=== PATIENT | male | born 1940 | race Caucasian/White ===

== ENCOUNTER 2016-05-18 22:31 | Observation (INO) ==
--- NOTE | 2016-05-18 22:51 | Emergency Department Note ---
Disposition Clinical Impression: Unstable angina pectoris Disposition: Admitted As Inpatient Time of Disposition: 05:06 Chest Pain HPI - General Chief Complaint: ED Chest Pain Stated Complaint: CP & SHEMAR Time Seen by Provider: 05/18/16 22:47 Source: patient Limitations: no limitations - History of Present Illness HPI Narrative: Patient began having chest pain to the left side of his chest that radiated down into his left arm earlier today. He states he also had a tight feeling around his head. He states this is how his previous MIs have helped. He reports shortness of breath with the pain as well. He describes the pain as an 8 out of 10. He describes the pain. There are no provoking or alleviating factors. It is constant. He states the pain radiates down his left arm. Severity scale (1-10): 8 - Related Data Home Medications Medication Instructions Recorded Confirmed Aspirin [Lo-Dose Aspirin EC] 81 mg PO DAILY 05/19/16 05/19/16 Atenolol [Tenormin] 25 mg PO DAILY 05/19/16 05/19/16 Atorvastatin [Lipitor] 80 mg PO HS 05/19/16 05/19/16 Ergocalciferol (VITAMIN D2) 50,000 unit PO QWEEK 05/19/16 05/19/16 [Vitamin D2] GlipiZIDE [Glipizide] 10 mg PO DAILY 05/19/16 05/19/16 Isosorbide MONOnitrate [Isosorbide 30 mg PO DAILY 05/19/16 05/19/16 Mononitrate] Januvia 100 mg PO DAILY 05/19/16 05/19/16 Latanoprost [Xalatan] 1 drop OP 05/19/16 05/19/16 Losartan [Cozaar] 50 mg PO DAILY 05/19/16 05/19/16 Multivit-Min/FA/Lycopen/Lutein 1 tab PO DAILY 05/19/16 05/19/16 [Centrum Silver Tablet] PHENobarbital [Phenobarbital] 16 mg PO TID 05/19/16 05/19/16 Phenytoin ER [Dilantin ER] 100 mg PO TID 05/19/16 05/19/16 Ropinirole [Requip] 1 mg PO HS 05/19/16 05/19/16 Allergies Allergy/AdvReac Type Severity Reaction Status Date / Time aspirin [ASA] AdvReac Gastrointestinal Verified 05/18/16 22:36 Upset Review of Systems: Patient denies any headaches or syncope. He denies any blurred vision. He does report chest pain that began earlier today it is an ache in the left side of his chest. He also reports shortness of breath with this. He reports a tight feeling around his head. He denies any nausea. He denies any vomiting or diarrhea. He denies any abdominal pain. He denies any swelling or edema to his extremities. All systems ED: reviewed and negative except as stated. Chest Pain PMH - Past Medical History Medical history: Reports: diabetes, hyperlipidemia, hypertension, myocardial infarction, seizures Psychiatric history: Reports: no psych history - Social History Smoking Status: Never smoker Alcohol use: Reports: none Drug use: Reports: none Physical Exam - General Limitations: no limitations General appearance: alert, in no apparent distress - Head Head exam: atraumatic, normocephalic, normal inspection - Eye Eye exam: Present: normal appearance, PERRL, EOMI. Absent: scleral icterus - ENT ENT exam: normal exam, normal oropharynx, mucous membranes moist - Neck Neck exam: Present: normal inspection, full ROM, trachea midline. Absent: tenderness, meningismus, lymphadenopathy - Chest Chest inspection: Present: normal inspection, symmetric chest wall rise. Absent : tenderness, rash - Respiratory Respiratory exam: Present: normal lung sounds bilaterally. Absent: respiratory distress - Cardiovascular Cardiovascular exam: Present: regular rate, normal rhythm, normal heart sounds - Abdominal Exam Abdominal exam: Present: soft, Non-Tender, normal bowel sounds. Absent: tenderness, distention, guarding, rebound, rigidity, organomegaly - Extremities Exam Extremities exam: Present: normal inspection, full ROM. Absent: tenderness, pedal edema - Back Exam Back exam: Present: normal inspection, full ROM. Absent: tenderness - Neurological Exam Neurological exam: Present: alert, oriented X3 - Psychiatric Psychiatric exam: Present: normal affect, normal mood - Skin Skin exam: Present: warm, dry, intact, normal color Course Course Narrative: Male patient with a significant cardiac history with HI and CABG presenting with chest pain that began today while he was sitting and watching television. He describes no alleviating or provoking factors. States the pain is an ache in the left side of his chest that radiates down into his arm. He also describes a band around his head. He states his house previous chest pain felt. His last cardiac catheter was 3 years ago. He states his pain is an 8 out of 10. He denies any shortness of breath at this time. He denies any dyspnea on exertion. We will give patient aspirin as he only takes a baby aspirin at home. Also try nitroglycerin. There is no acute ischemia noted on his EKG at this time. We will do a Cardiac workup. - Reevaluation(s) Reevaluation #1: Patient's workup was unremarkable. However patient has a heart score of 6 with a significant medical history. We will admit patient for a cardiac rule out. He is requesting to be admitted as well as this time. - Consultations Consultation #1: Dr morris accepted Pt in stable condition. Vital Signs Temperature 97.8 F 05/18/16 22:31 Pulse Rate 78 05/18/16 22:31 Respiratory Rate 20 05/18/16 22:31 Blood Pressure 167/72 05/18/16 22:31 O2 Sat by Pulse Oximetry 91 L 05/18/16 22:31 Temperature 98.1 F 05/19/16 03:58 Pulse Rate 73 05/19/16 03:58 Respiratory Rate 18 05/19/16 05:00 Blood Pressure 126/81 05/19/16 03:58 O2 Sat by Pulse Oximetry 98 05/19/16 05:00 Oxygen Delivery Oxygen Delivery Room Air Chest Pain - Medical Records Medical records reviewed: Yes I reviewed the patient's medical records. - Lab Data Lab results reviewed: Yes I reviewed the patient's lab results. Result diagrams: 05/18/16 22:45 05/18/16 22:45 Lab Results 05/18/16 05/18/16 05/18/16 Range/Units 22:45 22:45 22:45 WBC 9.8 (4.3-11.1) K/mcL RBC 3.88 L (4.19-5.50) M/mcL Hgb 12.6 L (12.9-16.9) g/dL Hct 37.9 (37.5-50.1) % MCV 97.7 (83.0-100.0) fL MCH 32.5 (28.0-33.3) pg MCHC 33.2 (31.6-35.5) g/dL RDW 13.2 (11.5-14.5) % Plt Count 180 (140-400) K/mcL MPV 9.1 L (9.4-12.4) fL Immature Gran % 0.5 (0-4) % Seg Neutrophils % 47.2 % Lymphocytes % 33.3 % Monocytes % 11.8 % Eosinophils % 6.3 % Basophils % 0.9 % Neutrophils # 4.6 (1.6-8.9) K/mcL Lymphocytes # 3.3 (0.6-4.6) K/mcL Monocytes # 1.2 (0.0-1.3) K/mcL Eosinophils # 0.6 (0.0-0.6) K/mcL Basophils # 0.1 (0.0-0.2) K/mcL PT 11.1 (9.4-12.1) Seconds INR 1.0 APTT 31.7 (26.0-36.0) Seconds Sodium 140 (136-145) mEq/L Potassium 4.1 (3.5-4.5) mEq/L Chloride 107 (98-109) mEq/L Carbon Dioxide 23 (19-29) mEq/L BUN 20 (8-26) mg/dL Creatinine 1.01 (0.72-1.25) mg/dL Est GFR ( Amer) > 60 (> 60) Est GFR (Non-Af Amer) > 60 (> 60) BUN/Creatinine Ratio 20 (6-26) Glucose 167 H (70-99) mg/dL Calculated Osmolality 296 (280-300) Calcium 8.8 (8.6-10.8) mg/dL Troponin I (0-0.03) ng/mL 05/18/16 Range/Units 22:45 WBC (4.3-11.1) K/mcL RBC (4.19-5.50) M/mcL Hgb (12.9-16.9) g/dL Hct (37.5-50.1) % MCV (83.0-100.0) fL MCH (28.0-33.3) pg MCHC (31.6-35.5) g/dL RDW (11.5-14.5) % Plt Count (140-400) K/mcL MPV (9.4-12.4) fL Immature Gran % (0-4) % Seg Neutrophils % % Lymphocytes % % Monocytes % % Eosinophils % % Basophils % % Neutrophils # (1.6-8.9) K/mcL Lymphocytes # (0.6-4.6) K/mcL Monocytes # (0.0-1.3) K/mcL Eosinophils # (0.0-0.6) K/mcL Basophils # (0.0-0.2) K/mcL PT (9.4-12.1) Seconds INR APTT (26.0-36.0) Seconds Sodium (136-145) mEq/L Potassium (3.5-4.5) mEq/L Chloride (98-109) mEq/L Carbon Dioxide (19-29) mEq/L BUN (8-26) mg/dL Creatinine (0.72-1.25) mg/dL Est GFR ( Amer) (> 60) Est GFR (Non-Af Amer) (> 60) BUN/Creatinine Ratio (6-26) Glucose (70-99) mg/dL Calculated Osmolality (280-300) Calcium (8.6-10.8) mg/dL Troponin I 0.00 (0-0.03) ng/mL - Radiology Data Radiology results reviewed: Yes I reviewed the patient's radiology results. - EKG Data EKG attestation: Yes I reviewed and interpreted this EKG. EKG results narrative: NOrmal sinus rhythm. No signs of acute ischemia. VT interval is 221. QT is 34. QTC is 421. No significant changes from previous EKG dated 09/08/2012. Attestation Statement - Attestation Attestation: I, Dionicio Gillespie MD, personally performed a history and physical exam of the patient and discussed their management with the resident. I reviewed the resident's note and agree with the documented findings, medical decision making , and plan of care. 75-year-old male presents to the emergency department with a complaint of chest pain. Patient states that about 4:30 this afternoon just started feeling weak and tired. About 6 PM he developed some left-sided chest pain which radiated to the left shoulder and down the left arm. The chest pain has been present since onset. He rates the pain about an 8 out of 10. He does have a prior cardiac history and has had CABG in the past. No coronary artery stents. He does have nitroglycerin at home but did not take any. On examination patient is a well-developed well-nourished well-appearing elderly male in no acute distress. He does not appear to be in any discomfort although he rates his chest pain and 8. He is alert and oriented 3. There is no cyanosis or diaphoresis. Chest is nontender to palpation. Breath sounds are clear and equal bilaterally. Heart regular rate and rhythm. Labs reviewed and unremarkable. Troponin negative. Chest x-ray negative. No acute changes on EKG. The hospitalist, Dr. Morris, was consulted and accepted admission of the patient.
[2016-05-18] MEDS ORDERED: Aspirin 81 MG TAB.CHEW PO ONE (23:04)
[2016-05-18] MEDS ORDERED: Nitroglycerin 0.4 MG TAB.SUBL SL STA (23:06)
[2016-05-18] MEDS ORDERED: *HR* HYDROmorphone (PF) 1 MG/ML SYRINGE IVP ONE (23:06)
[2016-05-18] MEDS ORDERED: Ondansetron 4 MG/2 ML VIAL IVP ONE (23:06)
[2016-05-18 23:11] LABS: Basophils # 0.1 K/mcL (0.0-0.2); Basophils % 0.9 %; Eosinophils # 0.6 K/mcL (0.0-0.6); Eosinophils % 6.3 %; Hematocrit 37.9 % (37.5-50.1); Hemoglobin 12.6 g/dL (12.9-16.9); Immature Granulocytes % 0.5 % (0-4); Lymphocytes # 3.3 K/mcL (0.6-4.6); Lymphocytes % 33.3 %; Mean Corpuscular HGB Conc 33.2 g/dL (31.6-35.5); Mean Corpuscular Hemoglobin 32.5 pg (28.0-33.3); Mean Corpuscular Volume 97.7 fL (83.0-100.0); Mean Platelet Volume 9.1 fL (9.4-12.4); Monocytes # 1.2 K/mcL (0.0-1.3); Monocytes % 11.8 %; Neutrophils # 4.6 K/mcL (1.6-8.9); Platelet Count 180 K/mcL (140-400); Red Blood Count 3.88 M/mcL (4.19-5.50); Red Cell Distribution Width 13.2 % (11.5-14.5); Segmented Neutrophils % 47.2 %
[2016-05-18 23:16] LABS: Prothrombin Time 11.1 Seconds (9.4-12.1)
[2016-05-18 23:19] LABS: Activated Partial Thrombo Time 31.7 Seconds (26.0-36.0)
[2016-05-18 23:22] LABS: BUN/Creatinine Ratio 20 (6-26); Blood Urea Nitrogen 20 mg/dL (8-26); Calcium 8.8 mg/dL (8.6-10.8); Carbon Dioxide 23 mEq/L (19-29); Chloride 107 mEq/L (98-109); Glucose 167 mg/dL (70-99); Osmolality,Calculated 296 (280-300); Potassium 4.1 mEq/L (3.5-4.5); Sodium 140 mEq/L (136-145); eGFR For African Americans > 60 (> 60); eGFR For Non-African Americans > 60 (> 60)
[2016-05-19] MEDS ORDERED: *HR* HYDROmorphone (PF) 1 MG/ML SYRINGE IVP ONE (00:28)
[2016-05-19] MEDS ORDERED: *HR* OxyCODONE Immed Rel 5 MG TABLET PO PRN (01:36)
[2016-05-19] MEDS ORDERED: Benzonatate 100 MG CAPSULE PO PRN (01:36)
[2016-05-19] MEDS ORDERED: *HR* HYDROmorphone (PF) 1 MG/ML SYRINGE IVP PRN (01:36)
[2016-05-19] MEDS ORDERED: Nitroglycerin 0.4 MG TAB.SUBL SL PRN (01:36)
[2016-05-19] MEDS ORDERED: *HR* Promethazine 25 MG/ML VIAL IVP PRN (01:36)
[2016-05-19] MEDS ORDERED: Naloxone 0.4 MG/ML INJ IVP PRN (01:36)
[2016-05-19] MEDS ORDERED: Acetaminophen 325 MG TABLET PO PRN (01:36)
--- NOTE | 2016-05-19 01:52 | Internal Med History&Physical ---
Date of Encounter: 05/19/16 Time of Encounter: 01:30 Assessment and Plan (1) Acute chest wall pain Current visit: Yes Status: Acute . (2) Chest pain, rule out acute myocardial infarction Current visit: Yes Status: Acute . (3) Chest pain with moderate risk of acute coronary syndrome Current visit: Yes Status: Acute . (4) CAD (coronary artery disease), [place] coronary artery Current visit: Yes Status: Chronic . Qualifiers: [place] vs. transplanted heart: [place] heart Associated angina: with stable angina Qualified Code(s): I25.118 - Atherosclerotic heart disease of [place] coronary artery with other forms of angina pectoris (5) Hx of CABG Current visit: Yes Status: Chronic . (6) Hypertension Current visit: Yes Status: Chronic . Qualifiers: Hypertension type: essential hypertension Qualified Code(s): I10 - Essential (primary) hypertension (7) Dyslipidemia Current visit: Yes Status: Chronic . (8) Type 2 diabetes mellitus Current visit: Yes Status: Chronic . Qualifiers: Diabetes mellitus complication status: with unspecified complications Diabetes mellitus termite treater insulin use: without termite treater use Qualified Code( s): E11.8 - Type 2 diabetes mellitus with unspecified complications (9) Seizure disorder Current visit: Yes Status: Chronic . (10) Acute and chronic respiratory failure with hypoxia Current visit: Yes Status: Acute . (11) Morbid obesity with BMI of 40.0-44.9, adult Current visit: Yes Status: Acute . (12) Costochondritis, acute Current visit: Yes Status: Acute .. (13) COPD mixed type Current visit: Yes Status: Chronic . (14) COPD exacerbation Current visit: Yes Status: Acute . (15) ADORE on CPAP Current visit: Yes Status: Chronic . (16) Hypoventilation associated with obesity Current visit: Yes Status: Chronic . (17) Anxiety about health Current visit: Yes Status: Acute . Internal Medicine - H&P: HPI Chief complaint: Chest pain Admitted From: Emergency Dept Plans for Post Hospital Care: Home History of present illness: Mr. Zhang is a 75 year old male with history significant for CAD/PTCA stents/CABG/AMIs, hypertension, dyslipidemia, type 2 diabetes mellitus, GERD, peripheral neuropathy, restless leg syndrome, COPD/ADORE nocturnal CPAP dependent , glaucoma, H/O prostate cancer, seizure disorder, H/O MRSA infection, H/O hepatitis C, osteoarthritis, osteopenia, vitamin D deficiency, morbid obesity, nonsmoker. The patient was visited and interviewed and examined. The patient was admitted to [facility] via the emergency department when he presented with complaints of acute onset of left chest pain. Patient has underlying history of CAD/CABG and prior acute myocardial infarction. Chest pain began today while sitting at rest watching a television program. He describes no specific alleviating or specific provoking factors. Pain was described as a sharp ache in the left side of his chest and radiated down into his left arm. [place] bandlike sensation around his head as well. Pain was rated as a 8/10 in severity when present. He denied any associated shortness of breath progressive dyspnea with activity. He denies any fevers chills or sweats. Denies any syncopal or presyncopal complaints. Denied PND orthopnea peripheral edema.. His most recent cardiac catheterization occurred approximately 3 years ago. His pain now resolved following sublingual nitroglycerin and one baby aspirin. Findings in the ED: Temperature 97.8 pulse 78 respirations 20 BP 167/ 72 O2 saturation 91% room air. WBC 9.8 hemoglobin 12.6 platelets 180,000. MPV 9.1. Differential normal. PT 11.1 INR 1.0 PTT 31.7. Metabolic panel bun 20 creatinine 1.01 glucose 167 osmolality 296. Troponin 0.00. Portable chest x- ray demonstrates no acute active cardiopulmonary process. Sternotomy changes apparent. No acute focal infiltrate and effusion pneumothorax or osseous structural normality. Cardiomediastinal silhouette without acute changes. EKG normal sinus rhythm. No signs of acute ischemia. No significant changes from prior study 2012. Preliminary impression suggests acute chest pain syndrome, with typical and atypical features. Presenting at rest and the patient with known CAD status post prior PTCA with stents CABG and prior acute myocardial infarction. The patient possesses multiple risk factors. Screening studies document resting hypoxemia on room air. This may suggest hypoventilation syndrome as might be seen in the obese individual. Patient has known obstructive sleep apnea and is nocturnal CPAP dependent. The patient presents increased risk for further acute clinical decline and morbidity given his presenting concerns, clinical findings, past history and comorbidities. Workup and treatment will progress comprehensively. Cumulative laboratory and radiographic data base was reviewed, considered and discussed. Pertinent ancillary medical records including ECW and PCI documentation, when available, was reviewed and considered. Given the patient's presenting concerns, past medical history, clinical findings and symptoms, he is admitted at this time will undergo further evaluation and disposition. Orders were written as per the computerized physician order manager system.......................................................................... .................... Consultative opinions will be sought as clinical circumstances justify. Pain management needs will be addressed. Laboratory and radiographic data base will be updated as appropriate. Studies include:cardiac injury panel, BNP, metabolic and hematologic panel, magnesium, phosphorus, ionized calcium, thyroid panel, lipid profile, A1c, C-peptide, CRP, sedimentation rate, coagulation profile, d-dimer, blood gas, lactic acid, serologies, etc. Precautions: Aspiration, fall, seizure, delirium protocol/surveillance initiated. Telemetry with continuous hemodynamic monitoring and pulse oximetry initiated. Empiric antibiotic coverage:pending culture data. Special studies: CTA chest, chest x-ray, telemetry, EKG, echocardiogram. Nuclear medicine myocardial perfusion stress test-Lexiscan pending negative cardiac injury profile. Pulmonary toilet: Incentive spirometry. When necessary aerosol bronchodilator, mucolytic, antitussive. Supplemental oxygen. When necessary corticosteroid therapy. CPAP/BiPAP supplemental oxygen delivery when necessary. Aerosol Mucomyst therapy when necessary. Fluid and electrolyte repletion efforts will proceed. Careful attention to fluid balance and renal recovery will be emphasized. Avoidance of nephrotoxic exposure and adverse drug drug interaction in the setting of impaired renal function will be monitored closely. Acute coronary syndrome protocol/surveillance initiated. Including: Plavix (in substitution for aspirin therapy due to reported intolerance), beta jason, statin, MARIE inhibitor. When necessary nitrates. When necessary morphine. Subcutaneous heparin/Lovenox. DVT and PUD prophylaxis initiated: PPI therapy, intermittent pneumatic cuffs. Subcutaneous heparin/Lovenox. Early ambulation will be encouraged. Immunization updates recommended. Influenza and pneumococcal vaccinations as part of ongoing preventative healthcare recommendations strongly recommended. Smoking cessation counseling briefly addressed. Patient is a nonsmoker. Advanced care directive discussion briefly addressed. Patient does not declare any healthcare restrictions at this time. Cardiovascular risk appraisal and cardiovascular risk reduction efforts will be emphasized. Physical and occupational therapy may be consulted to evaluate/assess patient's functional capacity and progress mobility if circumstances justify. Sliding scale/basal insulin coverage, ADA dietary restraint and schedule an as- needed basis fingerstick glucose assessments were initiated. Oral hypoglycemic therapy was withheld during hospitalization in favor of from fighting scale and basal insulin coverage. Reintroduction of the outpatient oral therapy for diabetes mellitus will be accomplished upon discharge. Nutrition/diabetes education counseling may be considered as circumstances justify. Outpatient medication schedules will be reviewed confirmed and facilitated as appropriate. Reconciliation of home treatments including adjustments, substitutions and reintroduction into the treatment regimen will address necessary maintenance therapies for chronic pre-existing medical conditions. Plan of care has been reviewed and discussed in detail with the patient. Questions addressed. Hospital course this dependent upon clinical findings, treatment response and potential consultative interventions. Patient is at risk for further acute clinical decline due to his age, presenting chief complaints and comorbid conditions. Condition is serious. Prognosis is cautiously optimistic. CODE STATUS is full. Past Med Surg Social Fam HX - Past Medical History Source: old records reviewed Medical history: arthritis, cancer (Prostate cancer), COPD (Obstructive sleep apnea, on home CPAP dependent), coronary artery disease, diabetes, GERD, glaucoma, hepatitis (Hepatitis C), hyperlipidemia, hypertension, malignancy, myocardial infarction, osteoporosis, seizures, other (Restless leg syndrome) Psychiatric history: no psych history, other - Past Surgical History Surgical History: angioplasty/stent, cholecystectomy, coronary bypass (CABG), orthopedic, other, other (Cervical spine surgery) - Social History Smoking Status: Never smoker Smokeless Tobacco Status: No Alcohol use: none Drug use: none Occupational status: retired Current living situation: With Family Activity Level: Independent ambulation, Mostly sedentary Recent Out of Country Travel Within the Last 8 Weeks: No Exposure or Possible Exposure to Illness During Travel: No - Family History Mother Name: Jennifer Haas Living Status: Age at : 56 Cause of : Coronary thrombosis Hx Family Cardiac Disorders: Yes (Coronary thrombosis) Hx Family Respiratory Disorders: No Hx Family Cancer: No Hx Family GI Disorders: No Hx Family Genitourinary Disorders: No Hx Family Endocrine Disorder: No Hx Family Musculoskeletal Disorders: Yes (Arthritis) Hx Family Neuromuscular Disorders: No Hx Family Neurologic Disorders: No Hx Family HEENT Disorders: No Hx Family Autoimmune Disorders: No Hx Family Reproductive Disorders: No Hx Family Psychosocial Disorders: No Hx Family Medical Disorders: No Internal Medicine - H&P: Meds Aspirin [Lo-Dose Aspirin EC] 81 mg PO DAILY 05/19/16 [History] Atenolol [Tenormin] 25 mg PO DAILY 05/19/16 [History] Atorvastatin [Lipitor] 80 mg PO HS 05/19/16 [History] Ergocalciferol (VITAMIN D2) [Vitamin D2] 50,000 unit PO QWEEK 05/19/16 [History] GlipiZIDE [Glipizide] 10 mg PO DAILY 05/19/16 [History] Isosorbide MONOnitrate [Isosorbide Mononitrate] 30 mg PO DAILY 05/19/16 [History ] Januvia 100 mg PO DAILY 05/19/16 [History] Latanoprost [Xalatan] 1 drop OP HS 05/19/16 [History] Losartan [Cozaar] 50 mg PO DAILY 05/19/16 [History] Multivit-Min/FA/Lycopen/Lutein [Centrum Silver Tablet] 1 tab PO DAILY 05/19/16 [ History] PHENobarbital [Phenobarbital] 16 mg PO TID 05/19/16 [History] Phenytoin ER [Dilantin ER] 100 mg PO TID 05/19/16 [History] Ropinirole [Requip] 1 mg PO HS 05/19/16 [History] Allergies aspirin [ASA] Adverse Reaction (Verified 05/18/16 22:36) Gastrointestinal Upset All Systems PM: A 10-system review of systems was performed and is negative for pertinent findings except as documented above in the HPI. - Constitutional Constitutional: as per HPI, no chills, no fever(s), no night sweats - EENT Eyes: as per HPI, no change in vision, no discharge, no pain, no photophobia Ears: as per HPI, no ear discharge, no ear pain, no tinnitus Nose, mouth and throat: as per HPI, no dysphagia, no nasal discharge, no neck pain, no sore throat - Cardiovascular Cardiovascular ROS IM: as per HPI, chest pain, dyspnea, no diaphoresis, no lightheadedness, no palpitations, no syncope - Respiratory Respiratory: as per HPI, dyspnea, dyspnea on exertion, no cough, no wheezing, no excessive phlegm production - Gastrointestinal Gastrointestinal: as per HPI, no abdominal pain, no diarrhea, no hematemesis, no hematochezia, no melena, no nausea, no vomiting - Genitourinary Genitourinary ROS male: as per HPI, no difficulty urinating, no dysuria, no hematuria - Musculoskeletal Musculoskeletal ROS IM: as per HPI, no numbness, no tingling - Integumentary Integumentary IM: as per HPI, no rash, no unusual bruising - Neurological Neurological ROS: as per HPI, no confusion, no convulsions, no focal weakness, no numbness, no tingling, no tremor(s) - Psychiatric Psychiatric: as per HPI - Endocrine Endocrine IM: as per HPI - Hematologic/Lymphatic Hematologic/Lymphatic: as per HPI, no easy bruising - Allergic/Immunologic Allergic/Immunologic: as per HPI - Constitutional Vitals: Temp Pulse Resp BP Pulse Ox 97.8 F 71 16 148/79 96 05/18/16 22:31 05/19/16 00:27 05/19/16 01:16 05/19/16 01:16 05/19/16 00:27 General appearance: Present: cooperative, mild distress, A&O X 3, morbidly obese , answers questions appropriately - Head Head exam: Present: atraumatic, normocephalic - Eye Eye exam: Present: EOMI, PERRL, conjuntiva pink, sclera anicteric Pupils: Present: normal accommodation - ENT ENT exam: Present: mucous membranes moist, normal external ear exam, normal oropharynx - Neck Neck exam general surgery: Present: full ROM, supple, trachea midline. Absent: lymphadenopathy, tenderness, nuchal rigidity - Respiratory Respiratory exam: Present: chest wall tenderness, decreased breath sounds, prolonged expiratory phase, wheezes. Absent: accessory muscle use, rales, rhonchi, stridor - Cardiovascular Cardiovascular exam: Present: distant heart sounds, RRR, +S1, +S2. Absent: diastolic murmur, gallop, rubs, systolic murmur - GI/Abdominal GI/Abdominal exam: Present: distended, normal bowel sounds, soft, no peritoneal signs. Absent: tenderness - Extremities Exam Extremities exam: Present: full ROM, warm, radial pulses palpable and symetrical. Absent: calf tenderness, cyanotic, pedal edema, tenderness - Neurological Exam Neurological exam: Present: alert, CN II-XII intact, oriented X3, no focal deficits. Absent: pronater drift, facial droop, speech deficit - Psychiatric Psychiatric exam: Present: normal affect, normal mood - Skin Skin exam: Present: dry, intact, warm. Absent: petechiae, rash, urticaria, vesicles Internal Med - H&P Results - Labs CBC & Chem 7: 05/18/16 22:45 05/18/16 22:45 - Impressions Vital Signs Temp Pulse Resp BP Pulse Ox 05/19/16 01:16 16 148/79 05/19/16 00:27 71 18 137/69 96 05/18/16 23:42 76 16 141/62 95 05/18/16 23:35 16 149/71 97 05/18/16 22:31 97.8 F 78 20 167/72 91 L Intake and Output 05/18/16 05/18/16 05/19/16 15:59 23:59 07:59 Other: Weight 123.377 kg Short CBC 05/18/16 Range/Units 22:45 WBC 9.8 (4.3-11.1) K/mcL Hgb 12.6 L (12.9-16.9) g/dL Hct 37.9 (37.5-50.1) % Plt Count 180 (140-400) K/mcL Neutrophils # 4.6 (1.6-8.9) K/mcL BMP 05/18/16 Range/Units 22:45 Sodium 140 (136-145) mEq/L Potassium 4.1 (3.5-4.5) mEq/L Chloride 107 (98-109) mEq/L Carbon Dioxide 23 (19-29) mEq/L BUN 20 (8-26) mg/dL Creatinine 1.01 (0.72-1.25) mg/dL Glucose 167 H (70-99) mg/dL Calcium 8.8 (8.6-10.8) mg/dL Cardiac Enzymes 05/18/16 Range/Units 22:45 Troponin I 0.00 (0-0.03) ng/mL Abnormal lab results RBC 3.88 M/mcL (4.19-5.50) L 05/18/16 22:45 Hgb 12.6 g/dL (12.9-16.9) L 05/18/16 22:45 MPV 9.1 fL (9.4-12.4) L 05/18/16 22:45 Glucose 167 mg/dL (70-99) H 05/18/16 22:45 Allergies Allergy/AdvReac Type Severity Reaction Status Date / Time aspirin [ASA] AdvReac Gastrointestinal Verified 05/18/16 22:36 Upset Laboratory Results WBC 9.8 K/mcL (4.3-11.1) 05/18/16 22:45 RBC 3.88 M/mcL (4.19-5.50) L 05/18/16 22:45 Hgb 12.6 g/dL (12.9-16.9) L 05/18/16 22:45 Hct 37.9 % (37.5-50.1) 05/18/16 22:45 MCV 97.7 fL (83.0-100.0) 05/18/16 22:45 MCH 32.5 pg (28.0-33.3) 05/18/16 22:45 MCHC 33.2 g/dL (31.6-35.5) 05/18/16 22:45 RDW 13.2 % (11.5-14.5) 05/18/16 22:45 Plt Count 180 K/mcL (140-400) 05/18/16 22:45 MPV 9.1 fL (9.4-12.4) L 05/18/16 22:45 Immature Gran % 0.5 % (0-4) 05/18/16 22:45 Seg Neutrophils % 47.2 % 05/18/16 22:45 Lymphocytes % 33.3 % 05/18/16 22:45 Monocytes % 11.8 % 05/18/16 22:45 Eosinophils % 6.3 % 05/18/16 22:45 Basophils % 0.9 % 05/18/16 22:45 Neutrophils # 4.6 K/mcL (1.6-8.9) 05/18/16 22:45 Lymphocytes # 3.3 K/mcL (0.6-4.6) 05/18/16 22:45 Monocytes # 1.2 K/mcL (0.0-1.3) 05/18/16 22:45 Eosinophils # 0.6 K/mcL (0.0-0.6) 05/18/16 22:45 Basophils # 0.1 K/mcL (0.0-0.2) 05/18/16 22:45 PT 11.1 Seconds (9.4-12.1) 05/18/16 22:45 INR 1.0 05/18/16 22:45 APTT 31.7 Seconds (26.0-36.0) 05/18/16 22:45 Sodium 140 mEq/L (136-145) 05/18/16 22:45 Potassium 4.1 mEq/L (3.5-4.5) 05/18/16 22:45 Chloride 107 mEq/L (98-109) 05/18/16 22:45 Carbon Dioxide 23 mEq/L (19-29) 05/18/16 22:45 BUN 20 mg/dL (8-26) 05/18/16 22:45 Creatinine 1.01 mg/dL (0.72-1.25) 05/18/16 22:45 Est GFR ( Amer) > 60 (> 60) 05/18/16 22:45 Est GFR (Non-Af Amer) > 60 (> 60) 05/18/16 22:45 BUN/Creatinine Ratio 20 (6-26) 05/18/16 22:45 Glucose 167 mg/dL (70-99) H 05/18/16 22:45 Calculated Osmolality 296 (280-300) 05/18/16 22:45 Calcium 8.8 mg/dL (8.6-10.8) 05/18/16 22:45 Troponin I 0.00 ng/mL (0-0.03) 05/18/16 22:45 Impressions Chest X-Ray 05/18/16 23:04 IMPRESSION: No acute process. D/ / Jase Umaña MD / Jase Umaña MD Interpreting Provider: Jase Umaña MD - Diagnostic Studies Other Images Additional comments: Echocardiogram July 2013 LVEF 55-60%. No instability and MA although images not well visualized in all views. Normal left ventricular size thickness systolic function. Evidence of mild diastolic dysfunction. RV not well visualized. Mild LA enlargement. No significant valvular dysfunction. Estimated RVSP 33 mmHg. No significant pulmonary hypertension. The IVC is not dilated.
[2016-05-19] MEDS: 0.9 % Sodium Chloride 1,000 ML IVC SCH (02:49)
[2016-05-19 03:28] LABS: Chol/HDL Ratio 3.4 (0-4.9); Magnesium 2.1 mg/dL (1.6-2.6); Phosphorous 3.7 mg/dL (2.3-4.7)
[2016-05-19 03:32] LABS: Hemoglobin A1C 6.3 %
[2016-05-19 03:36] LABS: VBG HCO3 27.2 mEq/L (21-27); VBG PH 7.37 pH Units (7.32-7.42)
[2016-05-19 03:57] LABS: Phenytoin (Dilantin) 2.2 mcg/mL (10-20)
[2016-05-19] MEDS: *HR* Heparin 5,000 UNIT/ML VIAL SQ SCH ×3 (04:03→21:18)
[2016-05-19] MEDS: Ipratropium/Albuterol Neb 3 ML IH SCH ×4 (05:00→22:07)
[2016-05-19] MEDS ORDERED: D5% in Water 1,000 ML IV PRN (06:42)
[2016-05-19] MEDS ORDERED: Dextrose Gel 15 GM PO PRN ×2 (06:44)
[2016-05-19] MEDS ORDERED: *HR* Dextrose 50 % in Water (Syg) 50 ML SYRINGE IVP PRN (06:44)
[2016-05-19] MEDS: Insulin LISPRO 300 UNITS/3 ML VIAL SQ SCH ×4 (07:17→16:34)
[2016-05-19] MEDS ORDERED: Regadenoson 0.4 MG/5 ML SYRINGE IVP ONE (10:03)
[2016-05-19] MEDS ORDERED: Perflutren Lipid Microsphere 1.3 ML in 0.9 % Sodium Chloride 8.7 ML IVP ONE (11:07)
[2016-05-19] MEDS: Isosorbide MONOnitrate (24 HR) 30 MG TAB.ER.24H PO SCH (12:22)
[2016-05-19] MEDS: PHENobarbital 15 MG TABLET PO SCH ×3 (12:23→21:19)
--- NOTE | 2016-05-19 13:55 | ECHO - Doppler Report ---
Echo with Imaging Enhancement Agent Name: Clem Zhang Date of Study: 05/19/2016 Date: 1940 Ht: 70.0 in Medical Record#: [id number] Age: 75 Wt: 272.0 lb Gender: Male BSA: 2.38 Order #: [id number] Location: [facility] Room #: [id number] Reading Physician: Sylvia Brewer DO Filling And Packing Supervisor: ROCK GonzalezT, [facility] Ordering Physician: Moses Beltrán MD Primary Physician: Concepcion Aponte MD Indications: Chest pain Impressions: LVEF 60%. Normal left ventricular size and systolic function. Definity was given. There is evidence of mild diastolic dysfunction of the left ventricle. RV is normal in size with mild reduction in function. No significant valvular dysfunction. No pulmonary hypertension by TR gradient. IVC was not well visualized to measure RVSP. Left Ventricular Wall Motion: Rest Echo Findings All wall segments showed normal motion. Findings: Study Quality * Technically sub-optimal due to body habitus. No subcostal views. Poor 2 chamber view. ECG Findings * Normal sinus rhythm. Aortic Valve * No aortic regurgitation. * Aortic valve not well visualized. * No aortic stenosis. Mitral Valve * No mitral regurgitation. * No mitral stenosis. * Normal mitral structure. Tricuspid Valve * Tricuspid valve not well visualized. * Trace tricuspid regurgitation. Pulmonic Valve * Pulmonic valve is not well visualized. * No pulmonic stenosis. * Trace pulmonic regurgitation. Pulmonary Artery * Pulmonary artery not well visualized. Left Atrium * Normal left atrial size. Right Atrium * Normal right atrial size. Left Ventricle * Mild left ventricular diastolic dysfunction. * Definity echo contrast was used. * LVEF 60%. Right Ventricle * RV is normal in size with mild reduction in function. Interatrial Septum * Interatrial septum not well evaluated. Pericardium * There is no pericardial effusion present. IVC * The IVC is not well evaluated. Aorta * Not well visualized. History Hypertension Diabetes Hypercholesteremia Family History of CAD History of CAD/PTCA Myocardial Infarction Coronary Artery Bypass Graft 2013 a Previous Echo was performed. Contrast: Definity 1.3 ml in 8.7 ml of saline 3 ml. Measurements: BP: 126/ 81 2D Normal Values IVSd: 1.20 cm 0.6 - 1.0 cm LVIDd: 5.40 cm 3.7 - 5.6 cm LVPWd: 1.20 cm 0.6 - 1.1 cm LVIDs: 3.60 cm 1.5 - 3.6 cm AO: 3.00 cm < 4.0 cm LA: 4.00 cm 2.0 - 4.0cm %FS: 33.30 cm >25 % LA volume: 47 Mitral Valve Peak E:.73 m/sec Peak A:.73 m/sec E/A Ratio:1 Tricuspid Valve TV Regurg Peak Grad: 19.00mmHg TV Regurg Peak Alek: 2.20m/sec Updated by Sylvia Brewer on 05/19/2016 1:44:30 PM electronically signed on 05/19/2016 1:50:03 PM with status of Final Wall Motion Jose: 1=Normal, 2=Hypokinesis, 3=Akinesis, 4=Dyskinesis, 5=Aneurysmal, 6=Hyperkinetic, X=Not Visualized (Blank)=Missing
--- NOTE | 2016-05-19 15:31 | Nuclear Medicine Stress Report ---
Regadenoson Nuclear Stress Name: Clem Zhang Date of Study: 05/19/2016 Date: 1940 Ht: 70.0 in Medical Record#: [id number] Age: 75 Wt: 272.0 lb Gender: Male Order #: [id number] Location: [facility] Room: [facility] Supervising Provider: Colby Ford CNP Reading Physician: Sylvia Brewer DO Ordering Physician: Moe Rodriguez MD Primary Care Physician: Concepcion Aponte MD Stress Technologist: Francesca Gonzalez, RESEARCH AND EVALUATION MANAGER, CCT, CPFT Medicinal Chemist: Yariel Arias Indications: Chest Pain Impression: There is bowel wall uptake obscuring interpretation of the inferior wall. However, during stress there appears to be mild worsening of perfusion in the basal and mid inferolateral wall in which mild ischemia cannot be ruled out. Pharmacologic ECG was negative for ischemia at the level of heart rate achieved. Gated EF = 65%. History: Hypertension Diabetes Hypercholesteremia History of Coronary Artery Bypass Surgery Stress Test Summary: Stress Test Type: Pharmacologic Regadenoson 0.4mg/5ml given IV Baseline Information: Initial Heart Rate: 61 Blood Pressure: 116/54 Stress Information: Stress Time: 4 min sec Test Terminated Due to (primary): As per protocol Maximum Blood Pressure: 122/60 Maximum Heart Rate: 79 Percent Maximum Heart Rate Achieved: 54 Double Product: 9638 METS Reached: 1 Symptoms: Shortness of breath Nuclear Summary: SPECT myocardial perfusion imaging using Tc99m Sestamibi given intravenously was performed at rest and following cardiac stress testing. The resting images were obtained following initial dose of 11.4 mCi. Following stress an additional dose of 35.5 mCi was given at peak exercise or 30 seconds post regadenoson infusion. Medication Given: Time Medication Dose Units Route Findings: Stress Note * Resting ECG demonstrated normal sinus rhythm with . * Pharmacologic stress ECG is negative for ischemia at level of heart rate achieved. * No arrhythmias were noted during stress. * Patient had no chest pain during stress. Hemodynamic responses * Normal hemodynamic responses to pharmacologic stress. Study Quality * Study quality was fair. Gated EF % * Gated EF = 65%. Left Ventricle * The left ventricle is not dilated. TID * No evidence of transient ischemic dilatation. Lung Uptake * There is no evidence of increase lung uptake. NORMALS * Normal wall motion. PERFUSION * There is bowel wall uptake obscuring interpretation of the inferior wall. However, during stress there appears to be mild worsening of perfusion in the basal and mid inferolateral wall. * Other areas demonstrate normal rest and stress perfusion. Updated by Sylvia Brewer on 05/19/2016 3:24:43 PM electronically signed on 05/19/2016 3:27:33 PM with status of Final
--- NOTE | 2016-05-19 16:31 | Event Note ---
Date of Encounter: 05/19/16 Time of Encounter: 16:00 Patient is feeling better. No chest pain today. Reviewed results of stress test with cardiology. Concerning for ischemia. We will consult cardiology for further recommendations.
[2016-05-19] MEDS ORDERED: Insulin DETEMIR 100 UNIT/ML X5UNITS SQ SCH (21:00)
[2016-05-19] MEDS ORDERED: Latanoprost 2.5 ML BOTTLE BOTH EYES SCH (21:00)
[2016-05-19] MEDS ORDERED: rOPINIRole 1 MG TABLET PO SCH (21:00)
[2016-05-20] MEDS: Insulin LISPRO 300 UNITS/3 ML VIAL SQ SCH ×3 (03:32→11:59)
[2016-05-20] MEDS: Ipratropium/Albuterol Neb 3 ML IH SCH ×3 (04:12→15:45)
[2016-05-20] MEDS: 0.9 % Sodium Chloride 1,000 ML IVC SCH (05:33)
[2016-05-20] MEDS: *HR* Heparin 5,000 UNIT/ML VIAL SQ SCH (05:37)
--- NOTE | 2016-05-20 08:14 | Cardiology Consult Note ---
Date of Encounter: 05/20/16 Time of Encounter: 08:15 Assessment and Plan (1) Chest pain, rule out acute myocardial infarction Current Visit: Yes Status: Acute Per Cardiology: Atypical symptoms that occurred at rest. Has not been utilizing nitroglycerin pills. Troponins 0.003. Echo shows EF preserved 60%, mild diastolic dysfunction , RV normal size with mild reduction in function, no significant valvular dysfunction, no segmental wall motion abnormalities. Currently chest pain-free. (2) Abnormal nuclear stress test Current Visit: Yes Status: Acute Per Cardiology: Stress test results reviewed and noted to have bowel wall uptake obscuring interpretation of inferior wall. Stress images appear to show mild worsening perfusion and basal and mid inferolateral wall of which ischemia cannot be excluded. I had lengthy discussion with patient and family regarding further ischemic evaluation in terms of left heart catheterization vs medical management with observation. Recommendations to increase the nitrate, provide refills for nitroglycerin to have an active prescription, and to follow-up in outpatient setting in a few weeks. Patient and family evaluating if they are agreeable. Discussed and reviewed with Dr. Burnett, left heart catheterization not recommended at this time. (3) CAD (coronary artery disease), [place] coronary artery Current Visit: Yes Status: Chronic Per Cardiology: Known history of CAD with CABG x 5 in 12/2003. Last heart catheterization January 2011 showed patent LOCO to LAD, patent SVG to OM1, patent SVG to OM 2. Patient had occluded SVG to PDA. Patient had fair quality collateral vessels from distal circumflex to proximal third right posterior lateral artery. Borderline stress results reflective of this territory. On aspirin-- patient listed with aspirin allergy, however denies-- he reports had GI irritation many years ago and tolerating at this time. On statin, Plavix, long-acting nitrate. Currently on MARIE inhibitor and ARB, will discontinue MARIE inhibitor. Qualifiers: [place] vs. transplanted heart: [place] heart Associated angina: with stable angina Qualified Code(s): I25.118 - Atherosclerotic heart disease of [place] coronary artery with other forms of angina pectoris Discussion w patient/family: The assessment and plan as outlined above was discussed with the patient and/or family members who expressed understanding and agreement. All questions were answered. Thank you for involving us in the care of your patient. Please call with any questions. History of Present Illness Consult date: 05/20/16 Requesting physician: Moe Rodriguez Consult reason: Abnormal ST Chief complaint: CP History of present illness: Mr. Zhang is a 75 year old male with a relevant past medical history CAD with CABG, PAD, hyperlipidemia, hypertension, diabetes mellitus type 2, obesity. Patient reports up until Friday his normal state of health with no chest pain and not requiring nitroglycerin pills. Patient and report he's fairly active and denies any increased fatigue or dyspnea on exertion. Reports Friday afternoon developed epigastric burning and midsternal chest pressure with radiation down his left arm. Reports he did not take nitroglycerin pills. Denies any recent fever, chills, nausea, vomiting, diarrhea, cough. Reports compliance with medications. Reports last catheterization in 2010. Indicates due for follow-up with Dr. Robertson July 2016. Past Med Surg Social Fam HX - Past Medical History Attestation: Yes The following information was validated with the patient. Source: patient, old records reviewed, obtained from family Medical history: diabetes, hyperlipidemia, hypertension, myocardial infarction, seizures Psychiatric history: no psych history - Past Surgical History Surgical History: angioplasty/stent, cholecystectomy, coronary bypass (CABG), orthopedic, other, other (Cervical spine surgery) - Social History Smoking Status: Never smoker Smokeless Tobacco Status: No Alcohol use: none Drug use: none - Family History Mother Name: Jennifer Haas Living Status: Age at : 56 Cause of : Coronary thrombosis Hx Family Cardiac Disorders: Yes (Coronary thrombosis) Hx Family Respiratory Disorders: No Hx Family Cancer: No Hx Family GI Disorders: No Hx Family Genitourinary Disorders: No Hx Family Endocrine Disorder: No Hx Family Musculoskeletal Disorders: Yes (Arthritis) Hx Family Neuromuscular Disorders: No Hx Family Neurologic Disorders: No Hx Family HEENT Disorders: No Hx Family Autoimmune Disorders: No Hx Family Reproductive Disorders: No Hx Family Psychosocial Disorders: No Hx Family Medical Disorders: No Medications and Allergies Aspirin [Lo-Dose Aspirin EC] 81 mg PO DAILY 05/19/16 [History] Atenolol [Tenormin] 50 mg PO DAILY 05/19/16 [History] Atorvastatin Calcium [Lipitor] 80 mg PO DAILY 05/19/16 [History] Atorvastatin [Lipitor] 80 mg PO HS 05/19/16 [History] Ergocalciferol (VITAMIN D2) [Vitamin D2] 50,000 unit PO QWEEK 05/19/16 [History] GlipiZIDE [Glipizide] 10 mg PO BID 05/19/16 [History] Isosorbide MONOnitrate [Isosorbide Mononitrate] 30 mg PO DAILY 05/19/16 [History ] Latanoprost [Xalatan] 1 drop OP HS 05/19/16 [History] Losartan [Cozaar] 50 mg PO DAILY 05/19/16 [History] Multivit-Min/FA/Lycopen/Lutein [Centrum Silver Tablet] 1 tab PO DAILY 05/19/16 [ History] PHENobarbital [Phenobarbital] 16.2 mg PO TID 05/19/16 [History] Phenytoin ER [Dilantin ER] 100 mg PO TID 05/19/16 [History] Ropinirole [Requip] 1 mg PO HS 05/19/16 [History] SitaGLIPtin [Januvia] 100 mg PO DAILY 05/19/16 [History] Allergies cholestyramine [From Questran] Allergy (Verified 05/19/16 15:01) See Comments PATIENT UNSURE OF REACTION- NONE LISTED ON [facility] LAST APPT. sucrose [From Questran] Allergy (Verified 05/19/16 15:01) See Comments PATIENT UNSURE OF REACTION- NONE LISTED ON [facility] LAST APPT. metformin Adverse Reaction (Verified 05/19/16 15:01) Diarrhea All Systems Review: A 10-system review of systems was performed and is negative for pertinent findings except as documented above in the HPI. - Cardiovascular Cardiovascular: as per HPI, chest pain at rest - Gastrointestinal Gastrointestinal: nausea Physical Examination Vital Signs, Last 4 Hours Temp Pulse Resp BP Pulse Ox 05/20/16 07:48 98.1 F 89 16 148/71 92 L General: Conversant, No Apparent Distress HEENT: Atraumatic, Normocephaly, Mucus Membranes Moist Neck: No JVD, Normal carotid pulses Cardiac: Reg Rate and Rhythm, Normal S1 and S2, No Murmur Lungs: Normal Breath Sounds, No Wheeze, Rales, Rhonchi Neuro: Alert and responsive, No focal deficits noted Abdomen: Soft, Non-Tender Skin: No rashes noted on visualized skin Musculoskeletal: No Chest Wall Tenderness Extremities: No Edema, Normal Pulses Results 05/18/16 22:45 05/20/16 08:45 Lab Results Laboratory Tests 01/11/2505/19/16 05/19/16 22:45 02:41 02:41 Hemoglobin A1c 6.3 H Troponin I 0.00 0.00 05/19/16 08:33 Hemoglobin A1c Troponin I 0.00 ITS Impressions Chest X-Ray 05/18/16 23:04 IMPRESSION: No acute process. D/ / Jase Umaña MD / Jase Umaña MD Interpreting Provider: Jase Umaña MD Chest CTA 05/19/16 02:36 IMPRESSION: No CT evidence of pulmonary embolism. D/ / Carlene Mendoza Cha, MD / Carlene Mendoza Cha, MD Interpreting Provider: Carlene Mendoza Cha, MD Active Medications Acetaminophen (Tylenol) 650 mg PO Q6HR PRN PRN Reason: Mild Pain (1-3) Stop: 11/18/16 01:37 Albuterol/Ipratropium (Duoneb) 3 ml IH QIDR SIRISHA PRN Reason: Protocol Stop: 11/18/16 05:01 Last Admin: 05/20/16 04:12 Dose: Not Given Atenolol (Tenormin) 25 mg PO DAILY [facility] Stop: 11/18/16 09:01 Last Admin: 05/19/16 12:22 Dose: 25 mg Atorvastatin Calcium (Lipitor) 80 mg PO HS [facility] Stop: 11/18/16 21:01 Last Admin: 05/19/16 21:19 Dose: 80 mg Benzonatate (Tessalon) 200 mg PO TID PRN PRN Reason: Cough Stop: 11/18/16 01:37 Clopidogrel Bisulfate (Plavix) 75 mg PO DAILY [facility] Stop: 11/18/16 09:01 Last Admin: 05/19/16 12:23 Dose: 75 mg Dextrose/Water (Dextrose 50% (Syg)) 25 ml IVP AD PRN PRN Reason: Hypoglycemia Stop: 11/18/16 06:45 Docusate Sodium (Colace) 100 mg PO BID PRN PRN Reason: Constipation Stop: 11/18/16 01:37 Glucagon (Glucagen) 1 mg IM ONCE PRN PRN Reason: Hypoglycemia Stop: 11/18/16 06:45 Glucose (Gluctose) 15 gm PO ONCE PRN PRN Reason: Hypoglycemia Stop: 11/18/16 06:45 Glucose (Gluctose) 30 gm PO ONCE PRN PRN Reason: Hypoglycemia Stop: 11/18/16 06:45 Guaifenesin (Mucinex) 600 mg PO BID [facility] Stop: 11/18/16 09:01 Last Admin: 05/19/16 21:19 Dose: 600 mg Heparin Sodium (Porcine) (Heparin) 5,000 unit SQ TID@0600,1400,2200 [facility] Stop: 11/18/16 06:01 Last Admin: 05/20/16 05:37 Dose: Not Given Hydromorphone HCl (Dilaudid) 0.5 mg IVP Q2H PRN PRN Reason: Severe Pain (7-10) Stop: 11/18/16 01:37 Sodium Chloride (0.9 % Sodium Chloride) 1,000 mls @ 50 mls/hr IVC .Q20H [facility] Stop: 11/18/16 01:46 Last Admin: 05/20/16 05:33 Dose: 50 mls/hr Dextrose (Dextrose 5%) 1,000 mls @ 100 mls/hr IV CONT PRN PRN Reason: HYPOGLYCEMIA Stop: 11/18/16 06:43 Insulin Detemir (Levemir) 18 unit 0.15 unit/kg (18 unit) SQ [facility] Stop: 11/18/16 21:01 Last Admin: 05/19/16 21:50 Dose: 18 unit Insulin Human Lispro (Humalog) 0 units SQ TIDAC [facility] PRN Reason: Protocol Stop: 11/18/16 07:31 Last Admin: 05/19/16 16:34 Dose: Not Given Insulin Human Lispro (Humalog) 0 units SQ [facility] PRN Reason: Protocol Stop: 11/18/16 06:46 Last Admin: 05/20/16 03:32 Dose: Not Given Isosorbide Mononitrate (Imdur) 30 mg PO DAILY [facility] Stop: 11/18/16 09:01 Last Admin: 05/19/16 12:22 Dose: 30 mg Latanoprost (Xalatan) 1 drop BOTH EYES [facility] PRN Reason: Protocol Stop: 11/18/16 21:01 Last Admin: 05/19/16 21:49 Dose: 1 drop Lisinopril (Zestril) 2.5 mg PO DAILY [facility] Stop: 11/18/16 09:01 Last Admin: 05/19/16 12:23 Dose: 2.5 mg Losartan Potassium (Cozaar) 50 mg PO DAILY [facility] PRN Reason: Protocol Stop: 11/18/16 09:01 Last Admin: 05/19/16 12:23 Dose: 50 mg Naloxone HCl (Narcan) 0.4 mg IVP Q2MIN PRN PRN Reason: Opioid Reversal Stop: 11/18/16 01:37 Nitroglycerin (Nitroglycerin) 0.4 mg SL Q5MIN PRN PRN Reason: Chest Pain Stop: 11/18/16 01:37 Omeprazole (Prilosec) 20 mg PO DAILY@0630 [facility] PRN Reason: Protocol Stop: 11/18/16 06:31 Last Admin: 05/20/16 05:33 Dose: 20 mg Oxycodone HCl (Roxicodone) 10 mg PO Q6HR PRN PRN Reason: Moderate Pain (4-6) Stop: 11/18/16 01:37 Phenobarbital (Phenobarbital) 15 mg PO TID [facility] Stop: 11/18/16 09:01 Last Admin: 05/19/16 21:19 Dose: 15 mg Phenytoin (Dilantin Er) 100 mg PO TID [facility] Stop: 11/18/16 09:01 Last Admin: 05/19/16 21:19 Dose: 100 mg Promethazine HCl (Phenergan) 12.5 mg IVP Q6HR PRN PRN Reason: Nausea And Vomiting Stop: 11/18/16 01:37 Last Admin: 05/19/16 02:49 Dose: 12.5 mg Ropinirole HCl (Requip) 1 mg PO HS [facility] Stop: 11/18/16 21:01 Last Admin: 05/19/16 21:19 Dose: 1 mg - Imaging and Cardiology Chest Xray: report reviewed Stress Test: report reviewed Echo: report reviewed Cardiac cath: report reviewed - EKG Interpretation EKG results cardiology: personally reviewed, normal ECG, sinus rhythm (Sinus rhythm in the 80s, inferior Q waves, comparable to previous ECG) Consult Discharge Plan - Plan Referrals: Concepcion Aponte MD [Primary Care Provider] -
[2016-05-20] MEDS: Isosorbide MONOnitrate (24 HR) 30 MG TAB.ER.24H PO SCH (08:52)
[2016-05-20] MEDS: PHENobarbital 15 MG TABLET PO SCH (08:52)
[2016-05-20 09:13] LABS: BUN/Creatinine Ratio 26 (6-26); Blood Urea Nitrogen 20 mg/dL (8-26); Calcium 8.7 mg/dL (8.6-10.8); Carbon Dioxide 20 mEq/L (19-29); Chloride 108 mEq/L (98-109); Glucose 156 mg/dL (70-99); Osmolality,Calculated 294 (280-300); Potassium 4.1 mEq/L (3.5-4.5); Sodium 139 mEq/L (136-145); eGFR For African Americans > 60 (> 60); eGFR For Non-African Americans > 60 (> 60)
[2016-05-20 11:40] VITALS: BP 104/65
--- NOTE | 2016-05-20 13:29 | Discharge Summary ---
Date of Encounter: 05/20/16 Time of Encounter: 13:27 - Discharge Diagnosis (1) Chest pain, rule out acute myocardial infarction Priority: Primary Status: Acute (2) CAD (coronary artery disease), [place] coronary artery Priority: Secondary Status: Chronic Qualifiers: [place] vs. transplanted heart: [place] heart Associated angina: with stable angina Qualified Code(s): I25.118 - Atherosclerotic heart disease of [place] coronary artery with other forms of angina pectoris (3) Dyslipidemia Priority: Secondary Status: Chronic (4) Hypertension Priority: Secondary Status: Chronic Qualifiers: Hypertension type: essential hypertension Qualified Code(s): I10 - Essential (primary) hypertension (5) Type 2 diabetes mellitus Priority: Secondary Status: Chronic Qualifiers: Diabetes mellitus complication status: with unspecified complications Diabetes mellitus adjunct faculty for medical terminology insulin use: without adjunct faculty for medical terminology use Qualified Code( s): E11.8 - Type 2 diabetes mellitus with unspecified complications - Discharge Medications Prescriptions: Isosorbide MONOnitrate (24 HR) [Imdur] 60 mg PO DAILY #30 tab.er.24h Home Medications: Aspirin [Lo-Dose Aspirin EC] 81 mg PO DAILY 05/19/16 [History] Atenolol [Tenormin] 50 mg PO DAILY 05/19/16 [History] Atorvastatin [Lipitor] 80 mg PO HS 05/19/16 [History] Ergocalciferol (VITAMIN D2) [Vitamin D2] 50,000 unit PO QWEEK 05/19/16 [History] GlipiZIDE [Glipizide] 10 mg PO BID 05/19/16 [History] Latanoprost [Xalatan] 1 drop OP HS 05/19/16 [History] Losartan [Cozaar] 50 mg PO DAILY 05/19/16 [History] Multivit-Min/FA/Lycopen/Lutein [Centrum Silver Tablet] 1 tab PO DAILY 05/19/16 [ History] PHENobarbital [Phenobarbital] 16.2 mg PO TID 05/19/16 [History] Phenytoin ER [Dilantin ER] 100 mg PO TID 05/19/16 [History] Ropinirole [Requip] 1 mg PO HS 05/19/16 [History] SitaGLIPtin [Januvia] 100 mg PO DAILY 05/19/16 [History] Isosorbide MONOnitrate (24 HR) [Imdur] 60 mg PO DAILY #30 tab.er.24h 05/20/16 [ Rx] Allergies/Adverse Reactions: Allergies cholestyramine [From Questran] Allergy (Verified 05/19/16 15:01) See Comments PATIENT UNSURE OF REACTION- NONE LISTED ON [facility] LAST APPT. sucrose [From Questran] Allergy (Verified 05/19/16 15:01) See Comments PATIENT UNSURE OF REACTION- NONE LISTED ON [facility] LAST APPT. metformin Adverse Reaction (Verified 05/19/16 15:01) Diarrhea Procedures/tests Complete & Pending: Procedures Performed prior 72 hours Category Date Time Status CTA chest [CT angio chest] [CT] Routine Cat Scan 05/19/16 02:36 Completed NM dhruv perf SPECT multi [NM] Routine Exams 05/19/16 08:00 Taken ECG 12 lead ECG [ECG] Routine Y 05/20/16 07:00 Ordered EV echocardiogram w enhance Routine Y 05/19/16 01:36 Completed SP pharm nuclear stress Routine Y 05/19/16 08:00 Completed Date of admission: 05/19/16 00:46 Primary care physician: Concepcion Salas Consults: 05/19/16 01:36 Consult to Cardiac Rehabilitation-Phase1 [CONS] Routine Comment: Reason for Consult: AMI Call Completed: Yes Consult to Nurse Navigator [CONS] Routine Comment: 05/19/16 06:42 Consult to Home Appliances Mechanic [CONS] Routine Comment: Discharging clinician: Moe Rodriguez Anticipated date of discharge: 05/20/16 - Patient Status Disposition: Home, Self-Care Condition: Good Overall status at discharge: patient is progressing back to baseline - Discharge Instructions Instructions: Chronic Hypertension (DC) Follow Up With: Concepcion Aponte MD [Primary Care Provider] - (in 1 - 2 weeks) Sam Robertson DO [Partnered Physician] - (in 1 week) - Diet and Activity Activity: increase activity as tolerated Diet: diabetic diet, low fat, low cholesterol, low salt diet Hospital course: Mr. Zhang is a 75 year old male with history of coronary artery disease, angina, CABG who was observed in the hospital with chest pain. His EKGs and troponins were trended and they were negative. He underwent stress test yesterday with concerns for mild ischemic changes. He was evaluated by cardiology today and recommended medical management for his mild low risk abnormal stress test. His dosage of Imdur was increased. He no longer has chest pain at this time. He is stable to be discharged home and will follow-up with cardiology after discharge. - Time Spent with Patient Total time spent providing and/or coordinating discharge services: - Constitutional Vitals: Temp Pulse Resp BP Pulse Ox 98.6 F 56 16 104/65 96 05/20/16 11:40 05/20/16 11:40 05/20/16 11:40 05/20/16 11:40 05/20/16 11:40 General appearance: Present: cooperative, mild distress, A&O X 3, morbidly obese , answers questions appropriately - Respiratory Respiratory exam: Present: CTAB. Absent: accessory muscle use, rales, rhonchi, wheezes - Cardiovascular Cardiovascular exam: Present: RRR, +S1, +S2. Absent: diastolic murmur, gallop, rubs, systolic murmur - GI/Abdominal GI/Abdominal exam: Present: normal bowel sounds, soft, no peritoneal signs. Absent: distended, tenderness - Extremities Exam Extremities exam: Present: warm, radial pulses palpable and symetrical. Absent : calf tenderness, cyanotic, pedal edema - Neurological Exam Neurological exam: Present: no focal deficits. Absent: facial droop, speech deficit - Skin Skin exam: Present: dry, intact
--- NOTE | 2016-05-20 13:45 | Electrocardiograph Report ---
[facility] Test Date: 2016-05-18 Pat Name: Clem Zhang Department: 105 Room: 3B24 Gender: M Wiper Blender: CHARLETTEM : 1940 Requested By: Margareth Au Order Number: [id number] Reading MD: Sam Robertson DO Measurements Intervals [place] Rate: 81 P: 30 IN: 221 QRS: -3 QRSD: 96 T: 69 QT: 384 QTc: 421 Interpretive Statements Sinus rhythm with a first degree AV block Possible inferior myocardial infarction, age undetermined Electronically Signed On 05-20-16 13:44:06 EST by Sam Robertson DO
[2016-05-21] MEDS ORDERED: Isosorbide MONOnitrate (24 HR) 60 MG TAB.ER.24H PO SCH (09:00)
[2016-05-22 08:13] LABS: Phenytoin (Dilantin) Free <0.5 ug/mL (1.0-2.5)
[2016-05-24 08:06] LABS: Thyroid Stim. Immunoglobulin 102 % (<=122)
== END 2016-05-20 15:05 | disposition home or self-care (01) ==
LOC: EMEROO 22:31 → 3BNU 22:31 → SUATTDRO 05-19 00:46 → 3BNU 05-19 01:33
PROVIDERS: ADMIT Family Medicine; ATTEND Internal Medicine

== ENCOUNTER 2018-12-20 08:47 | Observation (INO) ==
[2018-12-20] MEDS ORDERED: Aspirin 81 MG TAB.CHEW PO ONE (09:51)
[2018-12-20 10:04] LABS: Basophils # 0.1 K/mcL (0.0-0.2); Eosinophils # 0.5 K/mcL (0.0-0.6); Eosinophils % 7.3 %; Hematocrit 34.5 % (37.5-50.1); Hemoglobin 11.2 g/dL (12.9-16.9); Immature Granulocytes % 0.3 % (0-4); Lymphocytes # 2.3 K/mcL (0.6-4.6); Lymphocytes % 34.2 %; Mean Corpuscular HGB Conc 32.5 g/dL (31.6-35.5); Mean Corpuscular Hemoglobin 32.6 pg (28.0-33.3); Mean Corpuscular Volume 100.3 fL (83.0-100.0); Mean Platelet Volume 9.4 fL (9.4-12.4); Monocytes # 0.6 K/mcL (0.0-1.3); Monocytes % 8.5 %; Neutrophils # 3.3 K/mcL (1.6-8.9); Platelet Count 162 K/mcL (140-400); Red Blood Count 3.44 M/mcL (4.19-5.50); Red Cell Distribution Width 13.2 % (11.5-14.5); Segmented Neutrophils % 48.7 %; White Blood Count 6.8 K/mcL (4.3-11.1)
[2018-12-20 10:14] LABS: Prothrombin Time 11.5 Seconds (9.4-12.1)
[2018-12-20] MEDS ORDERED: Isovue-370 500 ML BOTTLE IVP ONE (10:28)
[2018-12-20 10:34] LABS: BUN/Creatinine Ratio 19 (6-26); Blood Urea Nitrogen 19 mg/dL (8-23); Calcium 8.4 mg/dL (8.6-10.3); Carbon Dioxide 19 mEq/L (23-29); Chloride 104 mEq/L (98-107); Glucose 291 mg/dL (70-105); Osmolality,Calculated 297 (280-300); Potassium 4.3 mEq/L (3.5-5.1); Sodium 137 mEq/L (136-145); Troponin I < 0.03 ng/mL (< 0.04); eGFR For African Americans > 60 (> 60); eGFR For Non-African Americans > 60 (> 60)
[2018-12-20 10:35] LABS: Albumin 3.5 g/dL (3.5-5.7); Albumin/Globulin Ratio 1.4 (1.1-2.2); Bilirubin,Direct 0.1 mg/dL (0.0-0.2); Bilirubin,Indirect 0.2 mg/dL (0.0-1.2); Bilirubin,Total 0.3 mg/dL (0.3-1.0); Globulin 2.5 g/dL (2.4-3.5)
[2018-12-20] MEDS ORDERED: *HR* Heparin 5,000 UNIT/ML VIAL IVP PRN ×2 (12:11)
[2018-12-20] MEDS ORDERED: *HR* Heparin 5,000 UNIT/ML VIAL IVP ONE (12:11)
[2018-12-20] MEDS: Heparin 25,000 UNIT/250 ML D5W 25,000 UNIT/250 ML IV.SOLN IVC SCH (12:23)
[2018-12-20 13:05] LABS: INR 1.1; Prothrombin Time 12.8 Seconds (9.4-12.1)
[2018-12-20 13:15] LABS: Heparin anti-factor XA UFH 1.65 IU/mL (0.30-0.70)
[2018-12-20] MEDS ORDERED: Naloxone 0.4 MG/ML INJ IVP PRN (14:36)
[2018-12-20] MEDS ORDERED: Dextrose Gel 15 GM/37.5 ML TUBE PO PRN ×2 (16:48)
[2018-12-20] MEDS ORDERED: *HR* Dextrose 50 % in Water (Syg) 50 ML SYRINGE IVP PRN (16:48)
[2018-12-20] MEDS ORDERED: D5% in Water 1,000 ML IVC PRN (16:48)
[2018-12-20] MEDS: PHENobarbitaL 32.4 MG TABLET PO SCH (20:12)
[2018-12-20] MEDS: rOPINIRole 1 MG TABLET PO SCH (20:12)
[2018-12-20] MEDS: Insulin LISPRO 300 UNITS/3 ML VIAL SQ SCH (20:15)
[2018-12-20] MEDS: Latanoprost 2.5 ML BOTTLE BOTH EYES SCH (21:50)
[2018-12-21 01:14] LABS: Basophils # 0.1 K/mcL (0.0-0.2); Basophils % 0.7 %; Eosinophils # 0.6 K/mcL (0.0-0.6); Eosinophils % 6.5 %; Hemoglobin 12.3 g/dL (12.9-16.9); Immature Granulocytes % 0.2 % (0-4); Lymphocytes # 1.5 K/mcL (0.6-4.6); Lymphocytes % 16.1 %; Mean Corpuscular HGB Conc 32.4 g/dL (31.6-35.5); Mean Corpuscular Hemoglobin 32.5 pg (28.0-33.3); Mean Corpuscular Volume 100.3 fL (83.0-100.0); Monocytes # 0.7 K/mcL (0.0-1.3); Monocytes % 7.7 %; Neutrophils # 6.5 K/mcL (1.6-8.9); Platelet Count 143 K/mcL (140-400); Red Blood Count 3.79 M/mcL (4.19-5.50); Red Cell Distribution Width 13.2 % (11.5-14.5); Segmented Neutrophils % 68.8 %; White Blood Count 9.4 K/mcL (4.3-11.1)
[2018-12-21] MEDS ORDERED: Ondansetron 4 MG/2 ML VIAL IVP ONE (01:31)
[2018-12-21 01:33] LABS: BUN/Creatinine Ratio 17 (6-26); Blood Urea Nitrogen 15 mg/dL (8-23); Calcium 8.6 mg/dL (8.6-10.3); Carbon Dioxide 20 mEq/L (23-29); Chloride 107 mEq/L (98-107); Glucose 151 mg/dL (70-105); Osmolality,Calculated 290 (280-300); Potassium 4.2 mEq/L (3.5-5.1); Sodium 138 mEq/L (136-145); eGFR For African Americans > 60 (> 60); eGFR For Non-African Americans > 60 (> 60)
[2018-12-21] MEDS: Heparin 25,000 UNIT/250 ML D5W 25,000 UNIT/250 ML IV.SOLN IVC SCH ×2 (06:36→17:47)
[2018-12-21] MEDS ORDERED: Perflutren Lipid Microsphere 1.3 ML in 0.9 % Sodium Chloride 8.7 ML IVP ONE (07:51)
[2018-12-21] MEDS ORDERED: Cholecalciferol (D-3) 1,000 UNIT (25MCG) TABLET PO SCH (09:00)
[2018-12-21] MEDS ORDERED: BIOTIN 5000 MG PO SCH (09:00)
[2018-12-21] MEDS: Isosorbide MONOnitrate (24 HR) 30 MG TAB.ER.24H PO SCH (09:44)
[2018-12-21] MEDS: Insulin LISPRO 300 UNITS/3 ML VIAL SQ SCH ×4 (09:44→19:55)
[2018-12-21] MEDS: PHENobarbitaL 32.4 MG TABLET PO SCH ×3 (09:44→20:00)
[2018-12-21] MEDS: *HR* SitaGLIPtin 100 MG TABLET PO SCH (09:44)
[2018-12-21] MEDS: Aspirin Enteric Coated 81 MG Tablet PO SCH (09:44)
[2018-12-21] MEDS: Multivit/Ca/Min/Fe/FA 1 TAB TABLET PO SCH (09:44)
[2018-12-21] MEDS: Cholecalciferol (D-3) 1,000 UNIT (25MCG) TABLET PO SCH (12:17)
[2018-12-21 14:06] LABS: INR 1.1; Prothrombin Time 12.9 Seconds (9.4-12.1)
[2018-12-21] MEDS ORDERED: Warfarin perPT PO PRN (18:00)
[2018-12-21] MEDS ORDERED: *HR* Warfarin 2.5 MG TABLET PO ONE (18:00)
[2018-12-21] MEDS: rOPINIRole 1 MG TABLET PO SCH (20:00)
[2018-12-21] MEDS: Latanoprost 2.5 ML BOTTLE BOTH EYES SCH (20:01)
[2018-12-22 03:02] LABS: Basophils # 0.1 K/mcL (0.0-0.2); Basophils % 0.9 %; Eosinophils # 0.9 K/mcL (0.0-0.6); Eosinophils % 9.6 %; Hematocrit 36.3 % (37.5-50.1); Hemoglobin 12.1 g/dL (12.9-16.9); Immature Granulocytes % 0.2 % (0-4); Lymphocytes # 2.8 K/mcL (0.6-4.6); Mean Corpuscular HGB Conc 33.3 g/dL (31.6-35.5); Mean Corpuscular Hemoglobin 32.2 pg (28.0-33.3); Mean Corpuscular Volume 96.5 fL (83.0-100.0); Mean Platelet Volume 9.1 fL (9.4-12.4); Monocytes # 1.1 K/mcL (0.0-1.3); Monocytes % 12.4 %; Neutrophils # 4.3 K/mcL (1.6-8.9); Platelet Count 153 K/mcL (140-400); Red Blood Count 3.76 M/mcL (4.19-5.50); Red Cell Distribution Width 13.2 % (11.5-14.5); Segmented Neutrophils % 46.9 %; White Blood Count 9.2 K/mcL (4.3-11.1)
[2018-12-22 03:10] LABS: INR 1.1; Prothrombin Time 12.9 Seconds (9.4-12.1)
[2018-12-22 03:11] LABS: BUN/Creatinine Ratio 19 (6-26); Blood Urea Nitrogen 16 mg/dL (8-23); Carbon Dioxide 25 mEq/L (23-29); Chloride 104 mEq/L (98-107); Glucose 163 mg/dL (70-105); Osmolality,Calculated 291 (280-300); Potassium 4.1 mEq/L (3.5-5.1); Sodium 138 mEq/L (136-145); eGFR For African Americans > 60 (> 60); eGFR For Non-African Americans > 60 (> 60)
[2018-12-22] MEDS: PHENobarbitaL 32.4 MG TABLET PO SCH (08:17)
[2018-12-22] MEDS: Cholecalciferol (D-3) 1,000 UNIT (25MCG) TABLET PO SCH (08:18)
[2018-12-22] MEDS: *HR* SitaGLIPtin 100 MG TABLET PO SCH (08:19)
[2018-12-22] MEDS: Aspirin Enteric Coated 81 MG Tablet PO SCH (08:19)
[2018-12-22] MEDS: Isosorbide MONOnitrate (24 HR) 30 MG TAB.ER.24H PO SCH (08:19)
[2018-12-22] MEDS: Multivit/Ca/Min/Fe/FA 1 TAB TABLET PO SCH (08:19)
[2018-12-22] MEDS: Insulin LISPRO 300 UNITS/3 ML VIAL SQ SCH (08:22)
[2018-12-22] MEDS: Heparin 25,000 UNIT/250 ML D5W 25,000 UNIT/250 ML IV.SOLN IVC SCH (08:23)
[2018-12-22] MEDS ORDERED: Haloperidol Lactate 5 MG/ML VIAL IVP ONE ×2 (10:37)
[2018-12-22] MEDS ORDERED: *HR* Enoxaparin 120 MG/0.8 ML SYRINGE SQ SCH (10:53)
[2018-12-22 11:24] VITALS: BP 125/67
[2018-12-22] MEDS ORDERED: *HR* Warfarin 5 MG TABLET PO ONE (18:00)
[2018-12-24 20:16] LABS: FACV Specimen WHOLE BLOOD
[2018-12-25 09:02] LABS: Fac V Leiden R506Q Mut Result NEGATIVE
[2018-12-30 11:19] LABS: Antiphospholipid IgG High Spec 24 GPL (0-14); Antiphospholipid IgM High Spec 49 MPL (0-14)
== END 2018-12-22 13:50 | disposition home or self-care (01) ==
LOC: SUATTDRO → 3BNU 08:47 → EMEROOARM 08:47 → SUATTDRO 14:44 → 3BNU 15:27
PROVIDERS: ADMIT Internal Medicine; ATTEND Family Medicine

== ENCOUNTER 2020-02-13 | Observation (INO) ==
[2020-02-13] MEDS ORDERED: Isovue-370 500 ML BOTTLE IVP ONE (00:31)
[2020-02-13] MEDS ORDERED: Aspirin 81 MG TAB.CHEW PO ONE (00:32)
[2020-02-13 00:49] LABS: Basophils # 0.1 K/mcL (0.0-0.2); Basophils % 0.9 %; Eosinophils # 0.5 K/mcL (0.0-0.6); Eosinophils % 5.6 %; Hematocrit 37.8 % (37.5-50.1); Hemoglobin 12.3 g/dL (12.9-16.9); Immature Granulocytes % 0.3 % (0-4); Lymphocytes # 2.9 K/mcL (0.6-4.6); Lymphocytes % 29.5 %; Mean Corpuscular HGB Conc 32.5 g/dL (31.6-35.5); Mean Corpuscular Hemoglobin 32.2 pg (28.0-33.3); Mean Platelet Volume 9.3 fL (9.4-12.4); Monocytes % 10.6 %; Neutrophils # 5.1 K/mcL (1.6-8.9); Platelet Count 170 K/mcL (140-400); Red Blood Count 3.82 M/mcL (4.19-5.50); Red Cell Distribution Width 13.3 % (11.5-14.5); Segmented Neutrophils % 53.1 %; White Blood Count 9.7 K/mcL (4.3-11.1)
[2020-02-13 00:56] LABS: INR 2.3
[2020-02-13 00:58] LABS: Activated Partial Thrombo Time 50.7 Seconds (26.0-36.0)
[2020-02-13 01:18] LABS: Alanine Aminotransferase 36 Units/L (7-52); Albumin 3.9 g/dL (3.5-5.7); Albumin/Globulin Ratio 1.3 (1.1-2.2); Alkaline Phosphatase 88 Units/L (34-104); Aspartate Amino Transferase 29 Units/L (13-39); BUN/Creatinine Ratio 23 (6-26); Bilirubin,Indirect 0.3 mg/dL (0.0-1.0); Bilirubin,Total 0.3 mg/dL (0.3-1.0); Blood Urea Nitrogen 23 mg/dL (8-23); Carbon Dioxide 23 mEq/L (23-29); Chloride 105 mEq/L (98-107); Globulin 3.1 g/dL (2.4-3.5); Glucose 193 mg/dL (70-105); Lipase 54 Units/L (11-82); Osmolality,Calculated 293 (280-300); Sodium 137 mEq/L (136-145); Troponin I < 0.03 ng/mL (< 0.04); eGFR For African Americans > 60 (> 60); eGFR For Non-African Americans > 60 (> 60)
[2020-02-13] MEDS ORDERED: Naloxone 0.4 MG/ML INJ IVP PRN (03:23)
[2020-02-13] MEDS ORDERED: Ondansetron 4 MG/2 ML VIAL IVP PRN (03:23)
[2020-02-13] MEDS: Multivit/Ca/Min/Fe/FA 1 TAB TABLET PO SCH (08:36)
[2020-02-13] MEDS: Aspirin Enteric Coated 81 MG Tablet PO SCH (08:36)
[2020-02-13] MEDS: Cholecalciferol (D-3) 1,000 UNIT (25MCG) TABLET PO SCH (08:36)
[2020-02-13] MEDS ORDERED: Nitroglycerin 0.4 MG TAB.SUBL SL PRN (13:09)
[2020-02-13] MEDS ORDERED: (Olopatadine Hcl [Pataday] 1 DROP) OP PRN (13:56)
[2020-02-13] MEDS ORDERED: Dextrose Gel 15 GM/37.5 ML TUBE PO PRN ×2 (14:19)
[2020-02-13] MEDS ORDERED: *HR* Dextrose 50 % in Water (Vial) 50 ML VIAL IVP PRN (14:19)
[2020-02-13] MEDS ORDERED: D5% in Water 1,000 ML IVC PRN (14:19)
[2020-02-13] MEDS: Insulin LISPRO 300 UNITS/3 ML VIAL SQ SCH (17:40)
[2020-02-13] MEDS ORDERED: *HR* Warfarin 2.5 MG TABLET PO ONE (18:00)
[2020-02-13] MEDS ORDERED: Warfarin perPT PO PRN (18:00)
[2020-02-13] MEDS: Dorzolamide/Timolol OPTH 10 ML BOTTLE BOTH EYES SCH (20:41)
[2020-02-13] MEDS ORDERED: Latanoprost 2.5 ML BOTTLE BOTH EYES SCH (21:00)
[2020-02-13] MEDS ORDERED: Acetaminophen 325 MG TABLET PO SCH (21:00)
[2020-02-13] MEDS ORDERED: rOPINIRole 1 MG TABLET PO SCH (21:00)
[2020-02-13] MEDS ORDERED: NON-FORMULARY MEDICATION 1 EACH EACH (Acetaminophen/Diphenhydramine [Acetaminophen Pm Capl PO SCH (21:00)
[2020-02-13] MEDS ORDERED: Insulin LISPRO 300 UNITS/3 ML VIAL SQ SCH (21:00)
[2020-02-14 01:39] LABS: INR 2.5
[2020-02-14] MEDS ORDERED: Regadenoson 0.4 MG/5 ML SYRINGE IVP ONE (05:46)
[2020-02-14] MEDS: Insulin LISPRO 300 UNITS/3 ML VIAL SQ SCH ×2 (08:29→12:11)
[2020-02-14] MEDS ORDERED: atenoloL 50 MG TABLET PO SCH (09:00)
[2020-02-14] MEDS: Aspirin Enteric Coated 81 MG Tablet PO SCH (11:00)
[2020-02-14] MEDS: Cholecalciferol (D-3) 1,000 UNIT (25MCG) TABLET PO SCH (11:00)
[2020-02-14] MEDS: Multivit/Ca/Min/Fe/FA 1 TAB TABLET PO SCH (11:01)
[2020-02-14] MEDS: Dorzolamide/Timolol OPTH 10 ML BOTTLE BOTH EYES SCH (11:05)
[2020-02-14] MEDS ORDERED: Isosorbide MONOnitrate (24 HR) 30 MG TAB.ER.24H PO ONE (13:54)
[2020-02-14 16:37] VITALS: BP 121/66
[2020-02-14] MEDS ORDERED: *HR* Warfarin 2.5 MG TABLET PO ONE (18:00)
[2020-02-15] MEDS ORDERED: Isosorbide MONOnitrate (24 HR) 30 MG TAB.ER.24H PO SCH (09:00)
[2020-02-15] MEDS ORDERED: Isosorbide MONOnitrate (24 HR) 60 MG TAB.ER.24H PO SCH (09:00)
== END 2020-02-14 17:51 | disposition home or self-care (01) ==
LOC: 3BNU → EMEROOARM → SUATTDRO 02:41 → 3BNU 03:15
PROVIDERS: ADMIT Internal Medicine; ATTEND Internal Medicine

== ENCOUNTER 2020-10-15 12:05 | Observation (INO) ==
[2020-10-15] MEDS ORDERED: Isovue-370 500 ML BOTTLE IVP ONE (12:19)
[2020-10-15 12:56] LABS: Basophils # 0.1 K/mcL (0.0-0.2); Eosinophils # 0.5 K/mcL (0.0-0.6); Eosinophils % 6.3 %; Hematocrit 37.4 % (37.5-50.1); Hemoglobin 12.1 g/dL (12.9-16.9); Immature Granulocytes % 0.3 % (0-4); Lymphocytes # 2.3 K/mcL (0.6-4.6); Lymphocytes % 30.3 %; Mean Corpuscular HGB Conc 32.4 g/dL (31.6-35.5); Mean Corpuscular Hemoglobin 32.5 pg (28.0-33.3); Mean Corpuscular Volume 100.5 fL (83.0-100.0); Mean Platelet Volume 9.2 fL (9.4-12.4); Monocytes # 0.6 K/mcL (0.0-1.3); Monocytes % 8.1 %; Neutrophils # 4.1 K/mcL (1.6-8.9); Platelet Count 182 K/mcL (140-400); Red Blood Count 3.72 M/mcL (4.19-5.50); Red Cell Distribution Width 13.3 % (11.5-14.5); White Blood Count 7.7 K/mcL (4.3-11.1)
[2020-10-15 13:18] LABS: Alanine Aminotransferase 79 Units/L (7-52); Albumin 3.7 g/dL (3.5-5.7); Albumin/Globulin Ratio 1.3 (1.1-2.2); Alkaline Phosphatase 87 Units/L (34-104); Aspartate Amino Transferase 64 Units/L (13-39); BUN/Creatinine Ratio 20 (6-26); Bilirubin,Direct 0.1 mg/dL (0.0-0.2); Bilirubin,Indirect 0.3 mg/dL (0.0-1.0); Bilirubin,Total 0.4 mg/dL (0.3-1.0); Blood Urea Nitrogen 17 mg/dL (8-23); Calcium 8.9 mg/dL (8.6-10.3); Carbon Dioxide 26 mEq/L (23-29); Chloride 101 mEq/L (98-107); Globulin 2.9 g/dL (2.4-3.5); Glucose 286 mg/dL (70-105); Osmolality,Calculated 292 (280-300); Potassium 3.9 mEq/L (3.5-5.1); Sodium 135 mEq/L (136-145); Total Protein 6.6 g/dL (6.4-8.9); Troponin I < 0.03 ng/mL (< 0.04); eGFR For African Americans > 60 (> 60); eGFR For Non-African Americans > 60 (> 60)
[2020-10-15 15:36] LABS: INR 2.8
[2020-10-15 15:38] LABS: Activated Partial Thrombo Time 42.7 Seconds (26.0-36.0)
[2020-10-15] MEDS ORDERED: Naloxone 0.4 MG/ML INJ IVP PRN (16:07)
[2020-10-15] MEDS ORDERED: Ondansetron 4 MG/2 ML VIAL IVP PRN (16:07)
[2020-10-15] MEDS ORDERED: Nitroglycerin 0.4 MG TAB.SUBL SL PRN (16:24)
[2020-10-15] MEDS ORDERED: Perflutren Lipid Microsphere 1.3 ML in 0.9 % Sodium Chloride 8.7 ML IVP PRN (16:27)
[2020-10-15] MEDS ORDERED: *HR* Dextrose 50 % in Water (Vial) 50 ML VIAL IVP PRN (16:35)
[2020-10-15] MEDS ORDERED: Dextrose Gel 15 GM/37.5 ML TUBE PO PRN ×2 (16:35)
[2020-10-15] MEDS ORDERED: D5% in Water 1,000 ML IVC PRN (16:35)
[2020-10-15] MEDS ORDERED: *HR* Warfarin 2.5 MG TABLET PO SCH (18:00)
[2020-10-15] MEDS ORDERED: Warfarin perPT PO PRN (18:00)
[2020-10-15 18:05] LABS: Estimated Average Glucose 163 mg/dl; Hemoglobin A1C 7.3 %
[2020-10-15 18:22] LABS: Magnesium 1.9 mg/dL (1.6-2.6)
[2020-10-15] MEDS: PHENobarbitaL 32.4 MG TABLET PO SCH (20:34)
[2020-10-15] MEDS ORDERED: Insulin LISPRO 300 UNITS/3 ML VIAL SUBQ SCH (21:00)
[2020-10-16 03:02] LABS: Basophils # 0.1 K/mcL (0.0-0.2); Basophils % 0.9 %; Eosinophils # 0.7 K/mcL (0.0-0.6); Eosinophils % 6.2 %; Hematocrit 38.1 % (37.5-50.1); Hemoglobin 12.2 g/dL (12.9-16.9); Immature Granulocytes % 0.3 % (0-4); Lymphocytes # 2.3 K/mcL (0.6-4.6); Lymphocytes % 20.7 %; Mean Corpuscular Hemoglobin 31.8 pg (28.0-33.3); Mean Corpuscular Volume 99.2 fL (83.0-100.0); Mean Platelet Volume 8.7 fL (9.4-12.4); Monocytes % 9.5 %; Neutrophils # 6.8 K/mcL (1.6-8.9); Platelet Count 174 K/mcL (140-400); Red Blood Count 3.84 M/mcL (4.19-5.50); Red Cell Distribution Width 13.3 % (11.5-14.5); Segmented Neutrophils % 62.4 %; White Blood Count 10.9 K/mcL (4.3-11.1)
[2020-10-16 05:20] LABS: Alanine Aminotransferase 77 Units/L (7-52); Albumin 3.9 g/dL (3.5-5.7); Albumin/Globulin Ratio 1.4 (1.1-2.2); Alkaline Phosphatase 83 Units/L (34-104); Aspartate Amino Transferase 61 Units/L (13-39); BUN/Creatinine Ratio 17 (6-26); Bilirubin,Total 0.5 mg/dL (0.3-1.0); Blood Urea Nitrogen 15 mg/dL (8-23); Calcium 9.3 mg/dL (8.6-10.3); Carbon Dioxide 27 mEq/L (23-29); Chloride 103 mEq/L (98-107); Cholesterol 131 mg/dL (< 200); Globulin 2.7 g/dL (2.4-3.5); Glucose 178 mg/dL (70-105); HDL Cholesterol 33 mg/dL (40-59); LDL Cholesterol,Calculated 52 mg/dL (< 100); Osmolality,Calculated 291 (280-300); Potassium 4.5 mEq/L (3.5-5.1); Sodium 138 mEq/L (136-145); Total Protein 6.6 g/dL (6.4-8.9); Triglycerides 230 mg/dL (< 150); eGFR For African Americans > 60 (> 60); eGFR For Non-African Americans > 60 (> 60)
[2020-10-16] MEDS: Insulin LISPRO 300 UNITS/3 ML VIAL SUBQ SCH ×2 (08:23→11:56)
[2020-10-16] MEDS: PHENobarbitaL 32.4 MG TABLET PO SCH (08:26)
[2020-10-16] MEDS ORDERED: Aspirin Enteric Coated 81 MG Tablet PO SCH (09:00)
[2020-10-16 10:06] VITALS: BP 131/74
[2020-10-16] MEDS ORDERED: Isosorbide MONOnitrate (24 HR) 30 MG TAB.ER.24H PO SCH (11:15)
[2020-10-16] MEDS ORDERED: Ranolazine 500 MG TAB.ER.12H PO SCH (11:15)
[2020-10-16 11:41] LABS: INR 2.9; Prothrombin Time 32.3 Seconds (9.4-12.1)
[2020-10-18 16:32] LABS: Phenytoin (Dilantin) Free <0.5 ug/mL (1.0-2.5)
[2020-10-19] MEDS ORDERED: *HR* Warfarin 5 MG TABLET PO SCH (18:00)
== END 2020-10-16 14:31 | disposition home or self-care (01) ==
LOC: EMEROOARM 12:05 → 3BNU 12:05 → SUATTDRO 15:53 → 3BNU 16:31
PROVIDERS: ADMIT Internal Medicine; ATTEND Internal Medicine

== ENCOUNTER 2021-03-31 14:52 | Observation (INO) ==
[2021-03-31 15:14] LABS: Hematocrit 34.9 % (37.5-50.1); Hemoglobin 11.3 g/dL (12.9-16.9); Mean Corpuscular HGB Conc 32.4 g/dL (31.6-35.5); Mean Corpuscular Hemoglobin 32.1 pg (28.0-33.3); Mean Corpuscular Volume 99.1 fL (83.0-100.0); Platelet Count 175 K/mcL (140-400); Red Blood Count 3.52 M/mcL (4.19-5.50); White Blood Count 8.8 K/mcL (4.3-11.1)
[2021-03-31] MEDS ORDERED: Isovue-370 500 ML BOTTLE IVP ONE (15:14)
[2021-03-31 15:21] LABS: INR 2.8; Prothrombin Time 31.3 Seconds (9.4-12.1)
[2021-03-31 15:23] LABS: Activated Partial Thrombo Time 49.4 Seconds (26.0-36.0)
[2021-03-31 15:35] LABS: BUN/Creatinine Ratio 17 (6-26); Blood Urea Nitrogen 22 mg/dL (8-23); Calcium 8.8 mg/dL (8.6-10.3); Carbon Dioxide 25 mEq/L (23-29); Chloride 103 mEq/L (98-107); Glucose 257 mg/dL (70-105); Osmolality,Calculated 294 (280-300); Potassium 4.4 mEq/L (3.5-5.1); Sodium 136 mEq/L (136-145); eGFR For African Americans > 60 (> 60); eGFR For Non-African Americans 55 (> 60)
[2021-03-31 15:36] LABS: Troponin I < 0.03 ng/mL (< 0.04)
[2021-03-31 16:59] LABS: Bilirubin,Urine Negative (Negative); Blood,Urine Negative (Negative); Clarity,Urine Clear (Clear); Color,Urine Light-Yellow (Yellow); Glucose,Urine (UA) 50 mg/dL (Normal); Ketones,Urine Negative (Negative); Leukocyte Esterase,Urine Negative (Negative); Nitrite,Urine Negative (Negative); PH,Urine 6.5 pH Units (5.0-8.0); Protein,Urine Negative (Neg-Trace); RBC,Urine 0-3 per hpf (0-3); Specific Gravity,Urine 1.024 (1.010-1.025); Squamous Epithelial Cell,Urine Few per hpf (None-Few); Urobilinogen,Urine Normal (Normal); WBC,Urine 0-3 per hpf (0-3)
[2021-03-31] MEDS ORDERED: Aspirin 325 MG TABLET PO ONE (17:14)
[2021-03-31] MEDS ORDERED: Melatonin 3 MG TABLET PO PRN (17:17)
[2021-03-31] MEDS ORDERED: Naloxone 0.4 MG/ML INJ IVP PRN (17:17)
[2021-03-31] MEDS ORDERED: Mag Hydrox/Al Hydrox/Simeth 30 ML UDC PO PRN (17:17)
[2021-03-31] MEDS ORDERED: Perflutren Lipid Microsphere 1.3 ML in 0.9 % Sodium Chloride 8.7 ML IVP PRN (17:17)
[2021-03-31] MEDS ORDERED: Ondansetron ODT 4 MG TAB.RAPDIS SL PRN (17:17)
[2021-03-31] MEDS ORDERED: Dextrose Gel 15 GM/37.5 ML TUBE PO PRN ×2 (17:59)
[2021-03-31] MEDS ORDERED: D5% in Water 1,000 ML IVC PRN (17:59)
[2021-03-31] MEDS ORDERED: *HR* Dextrose 50 % in Water (Syg) 50 ML SYRINGE IVP PRN (17:59)
[2021-03-31] MEDS: Ranolazine 500 MG TAB.ER.12H PO SCH (20:48)
[2021-03-31] MEDS ORDERED: Latanoprost 2.5 ML BOTTLE BOTH EYES SCH (21:00)
[2021-03-31] MEDS ORDERED: Insulin LISPRO 300 UNITS/3 ML VIAL SUBQ SCH (21:00)
[2021-03-31] MEDS ORDERED: rOPINIRole 1 MG TABLET PO SCH (21:00)
[2021-04-01 06:48] LABS: INR 2.4; Prothrombin Time 27.1 Seconds (9.4-12.1)
[2021-04-01 07:34] LABS: Chol/HDL Ratio 3.8 (0-4.9)
[2021-04-01] MEDS: Ranolazine 500 MG TAB.ER.12H PO SCH (08:22)
[2021-04-01] MEDS: Insulin LISPRO 300 UNITS/3 ML VIAL SUBQ SCH ×3 (08:23→16:44)
[2021-04-01] MEDS ORDERED: Aspirin Enteric Coated 81 MG Tablet PO SCH (09:00)
[2021-04-01] MEDS ORDERED: Cholecalciferol (D-3) 1,000 UNIT (25MCG) TABLET PO SCH (09:00)
[2021-04-01 09:34] LABS: Estimated Average Glucose 189 mg/dl; Hemoglobin A1C 8.2 %
[2021-04-01 11:01] LABS: Hematocrit 40.4 % (37.5-50.1); Mean Corpuscular HGB Conc 32.2 g/dL (31.6-35.5); Mean Corpuscular Hemoglobin 32.1 pg (28.0-33.3); Mean Corpuscular Volume 99.8 fL (83.0-100.0); Mean Platelet Volume 9.5 fL (9.4-12.4); Platelet Count 196 K/mcL (140-400); Red Blood Count 4.05 M/mcL (4.19-5.50); Red Cell Distribution Width 13.1 % (11.5-14.5); White Blood Count 9.5 K/mcL (4.3-11.1)
[2021-04-01 11:07] VITALS: O2SAT 97
[2021-04-01 11:20] LABS: Alanine Aminotransferase 15 Units/L (7-52); Albumin 4.2 g/dL (3.5-5.7); Albumin/Globulin Ratio 1.4 (1.1-2.2); Alkaline Phosphatase 60 Units/L (34-104); Aspartate Amino Transferase 16 Units/L (13-39); BUN/Creatinine Ratio 16 (6-26); Bilirubin,Total 0.4 mg/dL (0.3-1.0); Blood Urea Nitrogen 18 mg/dL (8-23); Calcium 9.3 mg/dL (8.6-10.3); Carbon Dioxide 25 mEq/L (23-29); Chloride 101 mEq/L (98-107); Globulin 3.1 g/dL (2.4-3.5); Glucose 233 mg/dL (70-105); Osmolality,Calculated 291 (280-300); Potassium 4.3 mEq/L (3.5-5.1); Sodium 136 mEq/L (136-145); Total Protein 7.3 g/dL (6.4-8.9); eGFR For African Americans > 60 (> 60); eGFR For Non-African Americans > 60 (> 60)
[2021-04-01 15:25] VITALS: BP 158/59; PULSE 75; TEMP 97.4
== END 2021-04-01 17:45 | disposition home health service (06) ==
LOC: SUATTDRO → 3BNU 14:52 → EMEROOARM 14:52 → SUATTDRO 17:50 → 3BNU 18:51
PROVIDERS: ADMIT Internal Medicine; ATTEND Family Medicine

== ENCOUNTER 2021-10-02 00:52 | Observation (INO) ==
[2021-10-02] MEDS ORDERED: Isovue-370 500 ML BOTTLE IVP ONE (01:11)
[2021-10-02 01:25] LABS: Hematocrit 36.6 % (37.5-50.1); Hemoglobin 11.9 g/dL (12.9-16.9); Mean Corpuscular HGB Conc 32.5 g/dL (31.6-35.5); Mean Corpuscular Hemoglobin 32.2 pg (28.0-33.3); Mean Corpuscular Volume 99.2 fL (83.0-100.0); Mean Platelet Volume 9.3 fL (9.4-12.4); Platelet Count 160 K/mcL (140-400); Red Blood Count 3.69 M/mcL (4.19-5.50); Red Cell Distribution Width 14.4 % (11.5-14.5); White Blood Count 8.6 K/mcL (4.3-11.1)
[2021-10-02 01:33] LABS: INR 2.5; Prothrombin Time 27.9 Seconds (9.4-12.1)
[2021-10-02 01:35] LABS: Activated Partial Thrombo Time 38.3 Seconds (26.0-36.0)
[2021-10-02 02:57] LABS: BUN/Creatinine Ratio 17 (6-26); Blood Urea Nitrogen 24 mg/dL (8-23); Calcium 8.9 mg/dL (8.6-10.3); Carbon Dioxide 27 mEq/L (23-29); Chloride 104 mEq/L (98-107); Glucose 179 mg/dL (70-105); Osmolality,Calculated 295 (280-300); Potassium 4.5 mEq/L (3.5-5.1); Sodium 138 mEq/L (136-145); Troponin I < 0.03 ng/mL (< 0.04); eGFR For African Americans > 60 (> 60); eGFR For Non-African Americans 50 (> 60)
[2021-10-02] MEDS ORDERED: Aspirin 81 MG TAB.CHEW PO STA (03:56)
[2021-10-02] MEDS ORDERED: Melatonin 3 MG TABLET PO PRN (05:04)
[2021-10-02] MEDS ORDERED: Naloxone 0.4 MG/ML INJ IVP PRN (05:04)
[2021-10-02] MEDS ORDERED: *HR* Dextrose 50 % in Water (Syg) 50 ML SYRINGE IVP PRN (05:14)
[2021-10-02] MEDS ORDERED: Dextrose 4 GM Chewable Tablets PO PRN ×2 (05:14)
[2021-10-02] MEDS ORDERED: D5% in Water 1,000 ML IVC PRN (05:14)
[2021-10-02 05:27] LABS: Magnesium 1.9 mg/dL (1.6-2.6)
[2021-10-02] MEDS: Insulin LISPRO 300 UNITS/3 ML VIAL SUBQ SCH ×3 (09:53→17:10)
[2021-10-02] MEDS ORDERED: Acetaminophen 325 MG TABLET PO PRN (13:43)
[2021-10-02] MEDS ORDERED: Nitroglycerin 0.4 MG TAB.SUBL SL PRN (15:48)
[2021-10-02] MEDS ORDERED: NON-FORMULARY MEDICATION 1 EACH EACH (Olopatadine Hcl [Pataday] 2.5 ML Drops) BOTH EYES PRN (15:48)
[2021-10-02] MEDS ORDERED: Warfarin perPT PO PRN (18:00)
[2021-10-02] MEDS ORDERED: *HR* Warfarin 2.5 MG TABLET PO ONE (18:00)
[2021-10-02] MEDS: Ranolazine 500 MG TAB.ER.12H PO SCH (20:57)
[2021-10-02] MEDS ORDERED: Insulin LISPRO 300 UNITS/3 ML VIAL SUBQ SCH (21:00)
[2021-10-02] MEDS ORDERED: Latanoprost 2.5 ML BOTTLE BOTH EYES SCH (21:00)
[2021-10-02] MEDS ORDERED: rOPINIRole 1 MG TABLET PO SCH (21:00)
[2021-10-02 23:01] LABS: Bacteria,Urine Few per hpf (None-Few); Bilirubin,Urine Negative (Negative); Blood,Urine Negative (Negative); Clarity,Urine Clear (Clear); Color,Urine Light-Yellow (Yellow); Glucose,Urine (UA) Normal (Normal); Ketones,Urine Negative (Negative); Leukocyte Esterase,Urine Trace (Negative); Nitrite,Urine Negative (Negative); Protein,Urine Negative (Neg-Trace); RBC,Urine 0-3 per hpf (0-3); Specific Gravity,Urine 1.014 (1.010-1.025); Squamous Epithelial Cell,Urine Few per hpf (None-Few); Urobilinogen,Urine Normal (Normal)
[2021-10-03 01:48] LABS: INR 2.5; Prothrombin Time 28.2 Seconds (9.4-12.1)
[2021-10-03] MEDS: Ranolazine 500 MG TAB.ER.12H PO SCH (07:34)
[2021-10-03] MEDS: Insulin LISPRO 300 UNITS/3 ML VIAL SUBQ SCH (07:35)
[2021-10-03] MEDS ORDERED: PHENobarbital 65 MG/ML VIAL IVP ONE (08:58)
[2021-10-03] MEDS ORDERED: Cholecalciferol (D-3) 1,000 UNIT (25MCG) TABLET PO SCH (09:00)
[2021-10-03] MEDS ORDERED: Aspirin 81 MG TAB.CHEW PO SCH (09:00)
[2021-10-03] MEDS ORDERED: atenoloL 50 MG TABLET PO SCH (09:00)
[2021-10-03] MEDS ORDERED: Isosorbide MONOnitrate (24 HR) 60 MG TAB.ER.24H PO SCH (09:00)
[2021-10-03 09:10] LABS: BUN/Creatinine Ratio 17 (6-26); Blood Urea Nitrogen 18 mg/dL (8-23); Calcium 9.2 mg/dL (8.6-10.3); Carbon Dioxide 27 mEq/L (23-29); Chloride 104 mEq/L (98-107); Glucose 223 mg/dL (70-105); Magnesium 1.8 mg/dL (1.6-2.6); Osmolality,Calculated 293 (280-300); Phosphorous 3.5 mg/dL (2.7-4.5); Potassium 4.5 mEq/L (3.5-5.1); Sodium 137 mEq/L (136-145); eGFR For African Americans > 60 (> 60); eGFR For Non-African Americans > 60 (> 60)
[2021-10-03 11:09] VITALS: BP 114/68; PULSE 85; TEMP 97.7; O2SAT 95
[2021-10-03] MEDS ORDERED: *HR* Warfarin 2.5 MG TABLET PO ONE (18:00)
== END 2021-10-03 11:22 | disposition home health service (06) ==
LOC: EMEROOARM 00:52 → 3BNU 00:52 → SUATTDRO 04:00 → 3BNU 04:55
PROVIDERS: ADMIT Student in an Organized Health Care Education/Training Program; ATTEND Internal Medicine